=== PATIENT | female | born 1965 | race Caucasian/White ===

== ENCOUNTER 2020-03-27 16:24 | Emergency (ER) | payer OTHER, SELFPAY ==
[2020-03-27] VITALS (7 sets, daily range): BP systolic 131–164; BP diastolic 66–116; PULSE 70–81; RESP 12–18; TEMP 36.6–37.2; O2SAT 97–99
--- NOTE | ~2020-03-27 | XR_ITS ---
EXAMINATION: XR chest 2V DATE: 03/27/2020 17:00 INDICATION: Right-sided chest pain TECHNIQUE: PA and lateral views of the chest are obtained. COMPARISON: 05/08/2015 FINDINGS: A 7 mm nodular opacity projects in the left lung base. No additional focal airspace opaciti es are identified. There is no pleural effusion or pneumothorax. The cardiomediastinal silhouette is normal. The visualized bones and soft tissues are unremarkable. IMPRESSION: 1. Nodular opacity of the left lung base, likely infectious or inflammatory. Recommend followup radio graphs in 10-14 days after appropriate therapy to evaluate for improvement/resolution. Reviewed, dictated and finalized at location A. IMPRESSION: 1. Nodular opacity of the left lung base, likely infectious or inflammatory. Re commend followup radiographs in 10-14 days after appropriate therapy to evaluat e for improvement/resolution.
--- NOTE | 2020-03-27 16:23 | ECG_ITS ---
Measurements Intervals [place] Rate: 73 P: 60 NM: 145 QRS: 59 QRSD: 87 T: 71 QT: 388 QTc: 429 Interpretive Statements SINUS RHYTHM EARLY PRECORDIAL R/S TRANSITION NONSPECIFIC ST & T-WAVE ABNORMALITY- DIFFUSE LEADS BASELINE ARTIFACT- I, II, III, AVL, AVF, V3-V4 BORDERLINE ECG Electronically Signed On 03-28-2020 7:56:42 CDT by Vlad Brothers D.O.
--- NOTE | 2020-03-27 16:33 | ED.CHESTPAIN ---
HPI - Chest Pain General Chief Complaint: Chest Pain Stated Complaint: chest pain Time Seen by Provider: 03/27/20 16:31 Source: patient Mode of arrival: ambulatory Limitations: no limitations History of Present Illness HPI narrative: Patient is a 54-year-old female who presents for evaluation of chest pain. Patient reports that the pain began approximately 2 hours ago when she was blow drying her hair. She states she has a history of fibromyalgia, when she raises her arms above her head it does often elicit arm and chest pain. Pain is in the center of her chest, worsened with movement. No associated nausea, vomiting, diaphoresis, shoulder pain. She does report mild back pain. No abdominal pain. No history of anginal type pain. No history of heart attack. No recent stress test. No recent car or air travel. Patient reports mild bilateral leg edema, but none currently. She reports chronic myalgias and muscle aches due to her fibromyalgia. No recent falls or injury. Related Data Home Medications Medication Instructions Recorded Confirmed fluoxetine 40 mg PO DAILY 03/27/20 meloxicam 15 mg PO DAILY 03/27/20 sertraline 25 mg PO DAILY 03/27/20 Allergies Allergy/AdvReac Type Severity Reaction Status Date / Time [id number]-M-tryptophan Allergy Unknown nausea, Verified 03/27/20 16:31 (oxitriptan) blurred vision gabapentin Allergy Unknown Other Verified 03/27/20 16:31 Penicillins Allergy Unknown Skin Verified 03/27/20 16:31 Reaction sumatriptan Allergy Unknown throat Verified 03/27/20 16:31 tight, lightheaded Review of Systems Review of Systems: Narrative: CONSTITUTIONAL: Denies fever CARDIOVASCULAR: Reports chest pain RESPIRATORY: Denies cough or dyspnea. GASTROINTESTINAL: Denies abdominal pain SKIN: Denies rash MUSCULOSKELETAL: Denies back pain NEUROLOGIC: Denies headache [facility] Past Medical History Medical History (Updated 03/28/20 @ 07:03 by Ayleen Be MD) Endometriosis Fibromyalgia Herpes zoster Surgical History Surgical History (Updated 03/27/20 @ 16:57 by Ayleen Be MD) H/O section H/O tubal ligation H/O: hysterectomy Social History Social History Smoking status: Current every day smoker Alcohol intake: current Exam Narrative: Exam Narrative: GENERAL: Awake, alert, conversant HEAD: Normocephalic, atraumatic. EYES: PERRLA and EOMI. ENT: Nares clear, no rhinorrhea or epistaxis. Mucous membranes moist. NECK: Supple. CHEST: No respiratory distress, breathing even and non labored, central chest wall tenderness which reproduces pain HEART: Regular rate, sinus rhythm ABDOMEN:Non distended, non tender EXTREMITIES: Normal range of motion. No edema. No calf tenderness SKIN: Warm, dry, no rash. NEURO:No focal deficits. Alert and oriented x3 Course Vital Signs Vital signs: Vital Signs Temperature 37.2 C 03/27/20 16:23 Pulse Rate 78 03/27/20 16:23 Respiratory Rate 18 03/27/20 16:23 Blood Pressure 148/116 H 03/27/20 16:23 Pulse Oximetry 99 03/27/20 16:23 Temperature 36.6 C 03/27/20 20:04 Pulse Rate 78 03/27/20 20:04 Respiratory Rate 16 03/27/20 20:04 Blood Pressure 131/74 03/27/20 20:04 Pulse Oximetry 98 03/27/20 20:04 MDM - Chest Pain MDM Narrative Medical decision making narrative: Patient's EKG and labs are without significant high risk changes. Cardiac risk factors reviewed. Patient is felt low risk for ACS and reasonable for further risk stratification testing as an outpatient. Pain was not sudden or maximal or onset without tearing or ripping quality. No other signs or symptoms to suggest aortic dissection. A low risk well's criteria is noted, dimer not elevated, PE is felt to be unlikely. Patient has a nodular opacity, no clinical symptoms of pneumonia or COVID infection, will treat with azithromycin, patient was updated as to the results
[2020-03-27 16:36] LABS: Basophils Percent Auto 0.5 % (0.2-1.2); Eosinophils Absolute Auto 0.1 K/mm3 (0-0.3); Eosinophils Percent Auto 1.6 % (0-4.4); Hematocrit 37.1 % (37.0-47.0); Hemoglobin 12.6 g/dL (12.0-15.0); Immature Granulocyte Absolute 0.02 K/mm3 (0.00-0.031); Immature Granulocyte Percent A 0.3 % (0-0.5); Lymphocytes Absolute Auto 2.11 K/mm3 (0.9-3.2); Lymphocytes Percent Auto 27.5 % (18.3-44.2); Mean Corpuscular Hemoglobin 31.2 pg (26-34); Mean Corpuscular Volume 91.8 fl (80-100); Monocytes Absolute Auto 0.6 K/mm3 (0.1-0.6); Monocytes Percent Auto 8.2 % (2.6-8.5); Neutrophils Absolute Auto 4.8 K/mm3 (1.3-6.7); Neutrophils Percent Auto 61.9 % (45.5-73.1); Platelet Count Result 204 k/mm3 (150-375); Red Blood Count 4.04 M/mm3 (4.2-5.4); Red Cell Distribution Width 12.1 % (11.5-14.5); White Blood Count 7.7 K/mm3 (4.5-10.0)
[2020-03-27 16:48] LABS: Blood Urea Nitrogen 21 mg/dL (7-17); Calcium 9.3 mg/dL (8.4-10.2); Carbon Dioxide 26 mmol/L (22-30); Chloride 107 mmol/L (98-107); Estimated CRCL calculation 93 ml/min; Estimated Glomerular Filt Rate > 60; Glucose 124 mg/dL (65-105); Potassium 3.6 mmol/L (3.4-5.0); Sodium 139 mmol/L (137-145)
[2020-03-27 16:49] LABS: Partial Thromboplastin Time 25.8 SECONDS (22.3-36.8); Prothrombin Time 12.6 Seconds (11.1-14.7)
[2020-03-27 16:59] LABS: Troponin I < 0.012 ng/mL (0.000-0.034)
[2020-03-27 17:16] LABS: D Dimer 0.41 ug/mL (<0.48)
[2020-03-27 19:57] LABS: Troponin I < 0.012 ng/mL (0.000-0.034)
== END 2020-03-27 20:04 | disposition home or self-care (01) ==
PROVIDERS: Emergency Provider Emergency Medicine
DX: J18.9 Pneumonia, unspecified organism (principal); R07.89 Other chest pain; N80.9 Endometriosis, unspecified; M79.7 Fibromyalgia; F17.200 Nicotine dependence, unspecified, uncomplicated; R94.31 Abnormal electrocardiogram [ECG] [EKG]
CPT/HCPCS: 36415; 71046; 80048; 84484; 85025; 85380; 85610; 85730; 93005; 99284; A9270

== ENCOUNTER 2022-06-12 09:06 | Outpatient (CLI) | payer OTHER, SELFPAY ==
[2022-06-12 19:04] LABS: Hemoglobin 12.9 g/dL (12.0-15.0); Mean Corpuscular HGB Conc 32.3 g/dl (32-36); Mean Corpuscular Hemoglobin 30.9 pg (26-34); Mean Corpuscular Volume 95.9 fl (80-100); Mean Platelet Volume 12.2 fl (7.4-10.4); Platelet Count Result 228 k/mm3 (150-375); Red Blood Count 4.17 M/mm3 (4.2-5.4); Red Cell Distribution Width 12.4 % (11.5-14.5); White Blood Count 6.8 K/mm3 (4.5-10.0)
[2022-06-12 19:17] LABS: Alanine Aminotransferase 22 U/L (6-35); Albumin Level 4.1 g/dL (3.5-5.1); Alkaline Phosphatase 86 U/L (38-126); Anion Gap 8 mmol/L (8-16); Aspartate Amino Transferase 28 U/L (14-36); Bilirubin,Total 0.4 mg/dL (0.2-1.3); Blood Urea Nitrogen 19 mg/dL (7-17); Carbon Dioxide 28 mmol/L (22-30); Chloride 102 mmol/L (98-107); Cholesterol 248 mg/dL (0-200); Estimated Glomerular Filt Rate > 60; Glucose 109 mg/dL (65-110); HDL Direct 49 mg/dL; Potassium 4.4 mmol/L (3.4-5.0); Sodium 138 mmol/L (137-145); Triglycerides 200 mg/dL (<150)
[2022-06-12 19:31] LABS: LDL Cholesterol Direct 142 mg/dL
[2022-06-12 19:39] LABS: Hemoglobin A1C 5.7 % (<5.7)
[2022-06-12 19:42] LABS: Vitamin D 25 Hydroxy 28.7 ng/mL
== END 2022-06-12 09:07 | disposition home or self-care (01) ==
LOC: ANHGOSHLAB 09:09
PROVIDERS: PCP Family Medicine; Visit Provider Nurse Practitioner
DX: E78.00 Pure hypercholesterolemia, unspecified (principal); F33.9 Major depressive disorder, recurrent, unspecified; Z13.21 Encounter for screening for nutritional disorder; Z13.6 Encounter for screening for cardiovascular disorders; R73.03 Prediabetes
CPT/HCPCS: 36415; 80053; 80061; 82306; 83036; 84443; 85027

== ENCOUNTER → 2022-08-14 14:54 | Outpatient (CLI) | payer OTHER, SELFPAY ==
--- NOTE | ~2022-08-14 | MR_ITS ---
EXAMINATION: MR elbow LT wo con DATE: 08/14/2022 15:57 INDICATION: Chronic ulnar-sided left elbow pain TECHNIQUE: Magnetic resonance imaging (MRI) of the left elbow was performed without intravenous contr ast. Sequences included coronal, axial, and sagittal PD-weighted FS FSE and coronal, axial, and sagit dulce PD-weighted FSE. COMPARISON: None FINDINGS: Osseous/other: Normal alignment. Normal marrow signal with no marrow edema, fracture, osteochondral lesion or abnor mal marrow replacing process. Tendons: Triceps, biceps brachii and brachialis tendons are normal. Minimal tendinopathy without tear at the medial epicondylar origin of the flexor tendon wad. Mild tendinopathy without tear at the lateral epi condylar origin of the common extensor tendon wad. Ligaments: The medial and lateral collateral ligament complexes are normal. Cubital tunnel: Cubital tunnel is unremarkable with normal signal and caliber of the ulnar nerve. Fluid: Physiologic amount of fluid the elbow joint. Minimal nonspecific edema overlying the medial epicondyl e. IMPRESSION: 1. Mild tendinopathy without tear at the lateral epicondylar origin of the common flexor tendon wad. 2. Minimal tendinopathy without tear at the medial epicondylar origin of the common extensor tendon w ad. Reviewed, dictated and finalized at location B. E IMPRESSION: 1. Mild tendinopathy without tear at the lateral epicondylar origin of the comm on flexor tendon wad. 2. Minimal tendinopathy without tear at the medial epicondylar origin of the co mmon extensor tendon wad.
--- NOTE | ~2022-08-14 | MR_ITS ---
EXAMINATION: MR cervical spine wo con DATE: 08/14/2022 16:06 INDICATION: Neck pain. TECHNIQUE: Magnetic resonance imaging (MRI) of the cervical spine was performed without intravenous c ontrast. Sequences included sagittal T2-weighted FSE, sagittal T2-weighted FS FSE, sagittal T1-weight ed FSE, axial MERGE, and axial T2-weighted FSE. COMPARISON: Cervical spine MRI 06/10/2019 FINDINGS: There is kyphosis of cervical spine. There is 2 mm retrolisthesis of C5 on C6 and C6 on C7. Vertebral body heights are normal. There is mildly decreased disc height at C3-C4, moderately decrea sed disc height at C4-C5, and severely decreased disc height at C5-C6 and C6-C7. The spinal cord sign al intensity is normal. The following disc levels are specifically discussed: C2-C3: There is a central extrusion. There is moderate bilateral uncovertebral joint osteoarthritis. There is severe right and moderate left facet joint osteoarthritis. There is mild bilateral neural fo raminal stenosis. There is no central canal stenosis. C3-C4: The disc is bulging. There is severe bilateral uncovertebral joint osteoarthritis. There is se [place] bilateral facet joint osteoarthritis. There is moderate bilateral neural foraminal stenosis. The re is mild central canal stenosis. C4-C5: The disc is bulging. There is severe bilateral uncovertebral joint osteoarthritis. There is se [place] right and moderate left facet joint osteoarthritis. There is moderate right and mild left neural foraminal stenosis. There is mild central canal stenosis. C5-C6: The disc is bulging. There is severe bilateral uncovertebral joint osteoarthritis. There is mo derate bilateral facet joint osteoarthritis. There is moderate bilateral neural foraminal stenosis. T here is mild central canal stenosis. C6-C7: The disc is bulging. There is severe bilateral uncovertebral joint osteoarthritis. There is mo derate bilateral facet joint osteoarthritis. There is mild bilateral neural foraminal stenosis. There is mild central canal stenosis. C7-T1: The disc does not extend beyond the endplate margin. There is no uncovertebral joint osteoarth ritis. There is severe bilateral facet joint osteoarthritis. There is mild bilateral neural foraminal stenosis. There is no central canal stenosis. IMPRESSION: 1. Severe cervical spondylosis, stable from 06/10/2019. Reviewed, dictated and finalized at location A. NTIFIC SOFTWARE DEVELOPER
== END ==
PROVIDERS: PCP Family Medicine; Visit Provider Nurse Practitioner
DX: M47.892 Other spondylosis, cervical region (principal); S56.212A Strain of other flexor muscle, fascia and tendon at forearm level, left arm, initial encounter; X58.XXXA Exposure to other specified factors, initial encounter
CPT/HCPCS: 72141; 73221

== ENCOUNTER 2022-10-09 09:00 | Outpatient (NON) | payer OTHER, SELFPAY | END 2022-10-09 09:01 | disposition home or self-care (01) | LOC: ANHLAB 10-10 08:01 | PROVIDERS: PCP Family Medicine; Visit Provider Internal Medicine Gastroenterology | DX: K63.5 Polyp of colon (principal) | CPT/HCPCS: 88305 ==

== ENCOUNTER 2022-10-09 09:02 | Day surgery (SDC) | payer OTHER, SELFPAY ==
[2022-08-30 11:01] VITALS: BMI 32.3
[2022-09-29 10:27] VITALS: BMI 29.7
--- NOTE | 2022-10-06 08:39 | WPDANESEPPF ---
Anes - Initial Pre Proc Eval Procedure: Operation Date: 10/09/22 11:00 Proposed Procedures p Screening Colonoscopy - Shiraz Fernandez MD Date/Time: 10/06/22 08:39 Surgeon: Shiraz Fernandez MD Pre Op Diagnosis: History of Polyps Patient Data Age: 57 Gender: F Height: 1.7 m Weight: 86 kg Allergies Allergy/AdvReac Type Severity Reaction Status Date / Time latex Allergy Intermediate Hives Verified 09/29/22 10:26 2-niubjqw-U-tryptophan Allergy Unknown nausea, Verified 09/29/22 10:26 (oxitriptan) blurred vision gabapentin Allergy Unknown Other Verified 09/29/22 10:26 Penicillins Allergy Unknown Skin Verified 09/29/22 10:26 Reaction sumatriptan Allergy Unknown throat Verified 09/29/22 10:26 tight, lightheaded Home Medications Medication Instructions Recorded Confirmed Type duloxetine 60 mg capsule,delayed 60 mg PO DAILY 11/08/20 09/29/22 History release atorvastatin 10 mg tablet 10 mg PO QHS #90 tabs 06/14/22 09/29/22 Rx cholecalciferol (vitamin D3) 50 50 mcg PO DAILY #90 tabs 06/14/22 09/29/22 Rx mcg (2,000 unit) tablet sertraline 50 mg tablet 50 mg PO DAILY 06/14/22 09/29/22 History sodium,potassium,mag sulfates 17.5 See Rx Instructions PO .COMPLEX 08/30/22 10/09/22 Rx gram-3.13 gram-1.6 gram oral soln #354 mL (Suprep Bowel Prep Kit) furosemide 40 mg tablet 40 mg PO QAM #90 tabs 09/22/22 09/29/22 Rx meloxicam 15 mg tablet 15 mg PO DAILY #90 tabs 09/22/22 09/29/22 Rx Patient hx anesthesia problems: none Family hx anesthesia problems: none Results Review: All pre-operative results and documents have been reviewed as part of the pre-operative evaluation. PENDING SALE TO [facility] Past Medical History Medical History Allergies Anxiety Arthritis Chronic back pain Chronic knee pain Endometriosis Fibromyalgia Herpes zoster Migraine, unspecified, not intractable, without status migrainosus Rodriguez's neuroma of right foot Surgical History Surgical History H/O section H/O tubal ligation H/O: hysterectomy Family History Family History Father Diabetes mellitus Family history of glaucoma Family history of cardiovascular disease Cerebrovascular accident Malignant neoplasm of prostate Mother Family history of cardiovascular disease Other Alcoholism Depression Heart disease Thyroid disorder Social History Social History Smoking packs per day: 0.5 Smoking cigarettes per day: 10.0 Smoking status: Smoker, status unknown Tobacco type: cigarettes Second hand tobacco smoke exposure: Yes Alcohol intake: never Alcohol use details: Only twice per year if that. Substance use: current Substance use type: marijuana Other substance usage details: gummies Living arrangements: with family Additional living arrangements comments: Additional occupation/education comments: [employer] Gender identity (if verbalized by the patient): Female Sexual Orientation (if Verbalized by the Patient): Straight or Heterosexual Spiritual care concerns: No Agree to blood products: Yes Anes - Eval Final PreProcedure Day of Procedure 10/06/22 08:39 Patient weight: obese Heart: regular rate and rhythm Lungs: clear to auscultation Airway: Mallampati scale class II Neurological: alert and oriented Last oral intake: >/= 8 hours ASA classification: III Emergent: no Anesthetic plan: proceed Anesthesia type and monitoring: general GIVS and standard monitoring Results Review: All pre-operative results and documents have been reviewed as part of the pre-operative evaluation. Informed Consent: The patient's anesthetic plan and its attendant risks and benefits were discussed with the patient/family/POA. Questions were solicited
[2022-10-09 09:45] VITALS: BP 114/81; PULSE 87; RESP 20; TEMP 36.6; O2SAT 97
[2022-10-09] MEDS: LACTATED RINGERS 1,000 ML 150 ML IV CONT (10:10)
--- NOTE | 2022-10-09 10:30 | PM.HPGS ---
History of Present Illness History of Present Illness Consent: Risks, benefits, and alternatives have been discussed and questions answered. Patient agrees to proceed with procedure. Chief complaint: History of Polyps Narrative: Sierra Dubose is a 57 year old female Presents for screening colonoscopy. Patient has a history of colon polyps identified in 2017. Family history is significant that her mother recently was identified as having colon cancer. Patient's current weight appetite and bowel movements are normal. Patient denies abdominal pain. She has had no bleeding. She presents today for neoplasia screening. Review of Systems Review of Systems: Review of systems noncontributory. [facility] Past Medical History Medical History Allergies Anxiety Arthritis Chronic back pain Chronic knee pain Endometriosis Fibromyalgia Herpes zoster Migraine, unspecified, not intractable, without status migrainosus Rodriguez's neuroma of right foot Surgical History Surgical History H/O section H/O tubal ligation H/O: hysterectomy Family History Family History Father Diabetes mellitus Family history of glaucoma Family history of cardiovascular disease Cerebrovascular accident Malignant neoplasm of prostate Mother Family history of cardiovascular disease Other Alcoholism Depression Heart disease Thyroid disorder Social History Social History Smoking packs per day: 0.5 Smoking cigarettes per day: 10.0 Smoking status: Smoker, status unknown Tobacco type: cigarettes Second hand tobacco smoke exposure: Yes Alcohol intake: never Alcohol use details: Only twice per year if that. Substance use: current Substance use type: marijuana Other substance usage details: jenise Living arrangements: with family Additional living arrangements comments: Additional occupation/education comments: [employer] Gender identity (if verbalized by the patient): Female Sexual Orientation (if Verbalized by the Patient): Straight or Heterosexual Spiritual care concerns: No Agree to blood products: Yes Meds Home Medications and Allergies Home Medications Medication Instructions Recorded Confirmed Type duloxetine 60 mg capsule,delayed 60 mg PO DAILY 11/08/20 09/29/22 History release atorvastatin 10 mg tablet 10 mg PO QHS #90 tabs 06/14/22 09/29/22 Rx cholecalciferol (vitamin D3) 50 50 mcg PO DAILY #90 tabs 06/14/22 09/29/22 Rx mcg (2,000 unit) tablet sertraline 50 mg tablet 50 mg PO DAILY 06/14/22 09/29/22 History sodium,potassium,mag sulfates 17.5 See Rx Instructions PO .COMPLEX 08/30/22 10/09/22 Rx gram-3.13 gram-1.6 gram oral soln #354 mL (Suprep Bowel Prep Kit) furosemide 40 mg tablet 40 mg PO QAM #90 tabs 09/22/22 09/29/22 Rx meloxicam 15 mg tablet 15 mg PO DAILY #90 tabs 09/22/22 09/29/22 Rx Allergies Allergy/AdvReac Type Severity Reaction Status Date / Time latex Allergy Intermediate Hives Verified 09/29/22 10:26 6-[id number]-F-tryptophan Allergy Unknown nausea, Verified 09/29/22 10:26 (oxitriptan) blurred vision gabapentin Allergy Unknown Other Verified 09/29/22 10:26 Penicillins Allergy Unknown Skin Verified 09/29/22 10:26 Reaction sumatriptan Allergy Unknown throat Verified 09/29/22 10:26 tight, lightheaded Vital Signs Vital Signs - 24 hr 10/09/22 09:45 Temperature 98 F Pulse Rate 87 Respiratory Rate 20 Blood Pressure 114/81 Pulse Oximetry 97 Oxygen Delivery Room Air Exam Narrative: Physical exam reveals patient to be alert. Vital signs stable. HEENT exam is unremarkable. Patient is anicteric. Lungs are clear to auscultation and percussion. Heart is without murmur or extra sounds. Abdome
[2022-10-09 10:57] VITALS: BP 119/75; PULSE 78; RESP 18; O2SAT 100
[2022-10-09 11:07] VITALS: BP 109/62; PULSE 75; RESP 18; O2SAT 100
[2022-10-09 11:17] VITALS: BP 139/78; PULSE 78; RESP 18; O2SAT 100
--- NOTE | 2022-10-09 12:19 | WPDANESPN ---
Anes - Prog Note Post-Op Date/Time: 10/09/22 12:19 Cardiovascular status: normal Respiratory status: normal Airway patency: baseline Mental status: baseline Post-Op hydration status: normal Vital Signs: Last Vital Signs Temp 36.6 C 10/09/22 09:45 Pulse 78 10/09/22 11:17 Resp 18 10/09/22 11:17 BP 139/78 10/09/22 11:17 Pulse Ox 100 10/09/22 11:17 O2 Del Method Room Air 10/09/22 11:17 Pain Score (VAS): 0 I/O: Intake & Output 10/08/22 10/09/22 10/09/22 23:59 07:59 15:59 Intake Total 500 Balance 500 Post-procedural complaints: none Patient Feedback: Patient satisfied with anesthetic care. Other Findings: Patient vital signs back to baseline. Patient denies nausea and vomiting. Patient's pain under control. Patient OK for discharge.
== END 2022-10-09 11:38 | disposition home or self-care (01) ==
PROVIDERS: PCP Family Medicine; Visit Provider Internal Medicine Gastroenterology
PROC: 0DJD8ZZ Inspection of Lower Intestinal Tract, Via Natural or Artificial Opening Endoscopic (ICD-10-PCS; CPT 45378; principal; 2022-10-09 11:00)
DX: Z86.010 Personal history of colon polyps (principal)
CPT/HCPCS: 45380

== ENCOUNTER 2022-12-13 10:33 | Outpatient (CLI) | payer OTHER, SELFPAY ==
[2022-12-13 20:28] LABS: Alanine Aminotransferase 24 U/L (6-35); Albumin Level 4.6 g/dL (3.5-5.1); Alkaline Phosphatase 91 U/L (38-126); Anion Gap 2 mmol/L (8-16); Aspartate Amino Transferase 54 U/L (14-36); Bilirubin,Total 0.5 mg/dL (0.2-1.3); Blood Urea Nitrogen 20 mg/dL (7-17); Calcium 9.1 mg/dL (8.4-10.2); Carbon Dioxide 32 mmol/L (22-30); Chloride 102 mmol/L (98-107); Cholesterol 217 mg/dL (0-200); Estimated Glomerular Filt Rate > 60; Glucose 93 mg/dL (65-110); HDL Direct 52 mg/dL; Potassium 4.3 mmol/L (3.4-5.0); Sodium 136 mmol/L (137-145); Triglycerides 144 mg/dL (<150)
[2022-12-13 20:29] LABS: Vitamin D 25 Hydroxy 58.6 ng/mL
[2022-12-13 20:52] LABS: LDL Cholesterol Direct 110 mg/dL
== END 2022-12-13 10:34 | disposition home or self-care (01) ==
LOC: ANHGOSHLAB 10:34
PROVIDERS: PCP Family Medicine; Visit Provider Nurse Practitioner
DX: E78.00 Pure hypercholesterolemia, unspecified (principal); E55.9 Vitamin D deficiency, unspecified
CPT/HCPCS: 36415; 80053; 80061; 82306

== ENCOUNTER 2023-06-18 10:10 | Outpatient (CLI) | payer BC, SELFPAY ==
[2023-06-18 19:16] LABS: Hematocrit 40.4 % (37.0-47.0); Hemoglobin 12.7 g/dL (12.0-15.0); Mean Corpuscular HGB Conc 31.4 g/dl (32-36); Mean Corpuscular Hemoglobin 31.7 pg (26-34); Mean Corpuscular Volume 100.7 fl (80-100); Mean Platelet Volume 13.2 fl (7.4-10.4); Platelet Count Result 198 k/mm3 (150-375); Red Blood Count 4.01 M/mm3 (4.2-5.4); Red Cell Distribution Width 12.7 % (11.5-14.5); White Blood Count 6.8 K/mm3 (4.5-10.0)
[2023-06-18 20:18] LABS: Alanine Aminotransferase 22 U/L (6-35); Albumin Level 4.3 g/dL (3.5-5.1); Alkaline Phosphatase 85 U/L (38-126); Anion Gap 7 mmol/L (8-16); Aspartate Amino Transferase 47 U/L (14-36); Bilirubin,Total 0.5 mg/dL (0.2-1.3); Blood Urea Nitrogen 25 mg/dL (7-17); Calcium 9.2 mg/dL (8.4-10.2); Carbon Dioxide 29 mmol/L (22-30); Chloride 103 mmol/L (98-107); Cholesterol 186 mg/dL (0-200); Estimated Glomerular Filt Rate > 60; Glucose 99 mg/dL (65-110); HDL Direct 48 mg/dL; Potassium 3.7 mmol/L (3.4-5.0); Sodium 139 mmol/L (137-145); Triglycerides 152 mg/dL (<150)
[2023-06-18 20:30] LABS: LDL Cholesterol Direct 92 mg/dL
[2023-06-18 21:30] LABS: Hemoglobin A1C 5.6 % (<5.7)
[2023-06-22 11:59] LABS: Vitamin D 1,25 (OH)2 Total 42 pg/mL (18-72); Vitamin D2 1,25 (OH)2 <8 pg/mL; Vitamin D3 1,25 (OH)2 42 pg/mL
== END 2023-06-18 10:11 | disposition home or self-care (01) ==
LOC: ANHGOSHLAB 10:11
PROVIDERS: PCP Family Medicine; Visit Provider Family Medicine
DX: E55.9 Vitamin D deficiency, unspecified (principal); E78.00 Pure hypercholesterolemia, unspecified; R73.03 Prediabetes; E66.9 Obesity, unspecified; Z79.899 Other long term (current) drug therapy
CPT/HCPCS: 36415; 80053; 80061; 82652; 83036; 84443; 85027

== ENCOUNTER 2023-12-14 09:23 | Outpatient (CLI) | payer BC, SELFPAY ==
[2023-12-14 14:35] LABS: Alanine Aminotransferase 15 U/L (6-35); Albumin Level 3.9 g/dL (3.5-5.1); Alkaline Phosphatase 76 U/L (38-126); Anion Gap 2 mmol/L (8-16); Aspartate Amino Transferase 44 U/L (14-36); Bilirubin,Total 0.5 mg/dL (0.2-1.3); Blood Urea Nitrogen 18 mg/dL (7-17); Calcium 9.1 mg/dL (8.4-10.2); Carbon Dioxide 31 mmol/L (22-30); Chloride 107 mmol/L (98-107); Cholesterol 165 mg/dL (0-200); Estimated Glomerular Filt Rate > 60; Glucose 104 mg/dL (65-110); HDL Direct 49 mg/dL; Potassium 4.4 mmol/L (3.4-5.0); Sodium 140 mmol/L (137-145); Triglycerides 116 mg/dL (<150)
[2023-12-14 14:46] LABS: LDL Cholesterol Direct 91 mg/dL
[2023-12-14 15:05] LABS: Hematocrit 37.5 % (37.0-47.0); Immature Platelet Fraction Pct 17.3 % (0.9-11.2); Mean Corpuscular Hemoglobin 31.8 pg (26-34); Mean Corpuscular Volume 99.5 fl (80-100); Mean Platelet Volume 13.2 fl (7.4-10.4); Platelet Count Result 167 k/mm3 (150-375); Red Blood Count 3.77 M/mm3 (4.2-5.4); Red Cell Distribution Width 13.2 % (11.5-14.5); White Blood Count 4.3 K/mm3 (4.5-10.0)
[2023-12-14 15:44] LABS: Folic Acid > 20.0 ng/mL (2.76->20)
[2023-12-14 16:00] LABS: Iron 105 ug/dL (37-170)
[2023-12-14 17:36] LABS: Percent Iron Saturation 31 % (20-50)
[2023-12-14 17:58] LABS: Hemoglobin A1C 5.6 % (<5.7)
[2023-12-18 13:45] LABS: Vitamin D 1,25 (OH)2 Total 41 pg/mL (18-72); Vitamin D2 1,25 (OH)2 <8 pg/mL; Vitamin D3 1,25 (OH)2 41 pg/mL
== END 2023-12-14 09:24 | disposition home or self-care (01) ==
LOC: ANHGOSHLAB 09:25
PROVIDERS: PCP Family Medicine; Visit Provider Family Medicine
DX: D64.9 Anemia, unspecified (principal); E55.9 Vitamin D deficiency, unspecified; E66.9 Obesity, unspecified; E78.00 Pure hypercholesterolemia, unspecified; R73.03 Prediabetes; Z79.899 Other long term (current) drug therapy
CPT/HCPCS: 36415; 80053; 80061; 82607; 82652; 82728; 82746; 83036; 83540; 83550; 84443; 85027; 85055

== ENCOUNTER 2023-12-19 09:14 | Outpatient (CLI) | payer BC, SELFPAY ==
--- NOTE | ~2023-12-19 | US_ITS ---
Limited Abdominal Sonogram: Real-time sonographic imaging of the right upper quadrant was performed. Clinical History: Abnormal serum enzymes Findings: The liver appears normal with no evidence of mass lesion or bile duct dilatation. Main por dulce vein demonstrates normal direction of flow. The gallbladder is well distended, and demonstrates s everal small polyps, measuring up to 3mm. The common bile duct measures 4 mm. The visualized pancrea s, aorta, and IVC are unremarkable. Impression: Small gallbladder wall polyps, as above. Reviewed, dictated and finalized at location M. Impression: Small gallbladder wall polyps, as above.
== END 2023-12-19 09:15 ==
LOC: GOSHIMG 09:14
PROVIDERS: PCP Family Medicine; Visit Provider Family Medicine
DX: R74.8 Abnormal levels of other serum enzymes (principal)
CPT/HCPCS: 76705

== ENCOUNTER 2024-01-25 10:13 | Outpatient (CLI) | payer BC, SELFPAY ==
--- NOTE | ~2024-01-25 | MR_ITS ---
MRI of the cervical spine Clinical History: Radiculopathy Technique: Axial T2-weighted and gradient images, and sagittal T1-weighted, T2-weighted, and STIR paz ges were acquired. Comparison: 08/14/2022 Findings: There is no fracture or subluxation of the cervical spine. Osseous alignment is unchanged from prior exam. No suspicious bone marrow signal abnormality seen. At C2-C3, there is mild disc osteophyte complex with right-sided facet arthropathy. There is mild rig ht neural foraminal narrowing. No left neural foraminal narrowing. No central canal stenosis or cord compression. At C3-C4, there is disc osteophyte complex, mild, with left facet arthropathy in particular. There is mild bilateral neural foraminal narrowing. No sean canal stenosis or cord compression. At C4-C5, there is disc ossify complex and bilateral facet arthropathy. There is bilateral neural for aminal narrowing, right worse than left. There is mild canal stenosis without sean cord compression. At C5-C6, there is moderate degenerative disc narrowing with mild disc osteophyte complex. There is m ild facet arthropathy. There is bilateral neural foraminal narrowing. No sean spinal canal stenosis or cord compression. At C6-C7, there is moderate degenerative disc narrowing with small disc osteophyte complex. There is mild canal stenosis without sean cord compression. There is bilateral neural foraminal narrowing, ri ght worse than left. No abnormal signal seen in the spinal cord. Paravertebral soft tissues are unremarkable. IMPRESSION: Moderate degenerative spondylosis, as detailed above. Reviewed, dictated and finalized at location .
== END 2024-01-25 10:14 ==
LOC: GOSHIMG 10:14
PROVIDERS: PCP Family Medicine; Visit Provider Nurse Practitioner Family
DX: M47.22 Other spondylosis with radiculopathy, cervical region (principal)
CPT/HCPCS: 72141

== ENCOUNTER 2024-05-05 15:12 | Outpatient (CLI) | payer BC, SELFPAY ==
--- NOTE | ~2024-05-05 | MM_ITS ---
EXAMINATION: MM screening martin BI w velvet HISTORY: Screening TECHNIQUE: Craniocaudal and mediolateral oblique 3-D tomosynthesis images were obtained and synthetic 2-D images were generated. CAD analysis was submitted and interpreted. COMPARISON: Comparison to multiple prior studies sequentially, with oldest reviewed study dated 05/11. BREAST PARENCHYMAL COMPOSITION: Not dense: There are scattered areas of fibroglandular density. FINDINGS: There is no evidence of suspicious mass, calcification, or architectural distortion to sugg est malignancy in either breast. There has been no suspicious interval change. IMPRESSION: 1. No mammographic evidence of malignancy. 2. Recommend routine screening mammography in one year. BI-RADS Category 1: Negative Reviewed, dictated and finalized at location B.
== END 2024-05-05 15:13 | disposition home or self-care (01) ==
PROVIDERS: PCP Family Medicine; Visit Provider Family Medicine
DX: Z12.31 Encounter for screening mammogram for malignant neoplasm of breast (principal)
CPT/HCPCS: 77063; 77067

== ENCOUNTER 2024-05-07 08:54 | Outpatient (CLI) | payer BC, SELFPAY ==
--- NOTE | ~2024-05-07 | XR_ITS ---
Cervical Spine: AP, lateral, open-mouth views Clinical History: Pain Findings: There is mild reversal normal cervical lordosis. No fracture or sublocation. There is moder ate to advanced degenerative disc narrowing from C3 through C7. There is moderate facet arthropathy. No instability evident on flexion or extension. Pre-vertebral soft tissues are unremarkable. Impression: Moderate degenerative spondylosis, as above. Reviewed, dictated and finalized at location . Impression: Moderate degenerative spondylosis, as above.
--- NOTE | ~2024-05-07 | CT_ITS ---
EXAMINATION: CT cervical spine wo con DATE: 05/07/2024 09:13 INDICATION: Radiculopathy, cervical region. Neck pain. TECHNIQUE: Computed tomography (CT) of the cervical spine was performed without intravenous contrast. Automated exposure control and iterative reconstruction technique were employed. The dose-length pro duct was 236.72 mGy-cm. COMPARISON: Cervical spine radiographs 05/07/24 FINDINGS: There is mild scarring at the lung apices. There is mild emphysema. There is kyphosis of ce rvical spine. There is 2 mm retrolisthesis of C5 on C6 and C6 on C7. Vertebral body heights are deisy l. There is mildly decreased disc height at C3-C4 and severely decreased disc height from C4-C5 throu gh C6-C7. The following disc levels are specifically discussed: C2-C3: There is severe right and mild left uncovertebral joint osteoarthritis. There is severe right and mild left facet joint osteoarthritis. There is mild right neural foraminal stenosis. There is no central canal stenosis. C3-C4: There is severe right and moderate left uncovertebral joint osteoarthritis. There is severe bi lateral facet joint osteoarthritis. There is mild right and moderate left neural foraminal stenosis. There is mild central canal stenosis. C4-C5: There is severe bilateral uncovertebral joint osteoarthritis. There is severe bilateral facet joint osteoarthritis. There is mild bilateral neural foraminal stenosis. There is mild central canal stenosis. C5-C6: There is severe bilateral uncovertebral joint osteoarthritis. There is severe bilateral facet joint osteoarthritis. There is mild bilateral neural foraminal stenosis. There is mild central canal stenosis. C6-C7: There is severe bilateral uncovertebral joint osteoarthritis. There is severe right and modera te left facet joint osteoarthritis. There is mild right and moderate left neural foraminal stenosis. There is mild central canal stenosis. C7-T1: There is mild right uncovertebral joint osteoarthritis. There is severe bilateral facet joint osteoarthritis. There is mild bilateral neural foraminal stenosis. There is no central canal stenosis . IMPRESSION: 1. Severe cervical spondylosis. Reviewed, dictated and finalized at location A.
== END 2024-05-07 08:55 ==
PROVIDERS: PCP Family Medicine; Visit Provider Neurological Surgery
DX: M47.892 Other spondylosis, cervical region (principal); M25.562 Pain in left knee
CPT/HCPCS: 72050; 72125; 73562

== ENCOUNTER 2024-09-10 15:16 | Outpatient (CLI) | payer BC, SELFPAY ==
--- NOTE | ~2024-09-10 | XR_ITS ---
EXAMINATION: XR lumbar spine 2-3V DATE: 09/10/2024 16:20 INDICATION: Other low back pain. TECHNIQUE: 3 views of lumbar spine were obtained. COMPARISON: None. FINDINGS: There is 4 degrees levocurvature of lumbar spine. There is mild kyphosis of lumbar spine. V ertebral body heights are normal. There is mildly decreased disc height at L2-L3 and L3-L4. There is multilevel facet joint osteoarthritis, severe in lower lumbar spine. IMPRESSION: 1. Mild lumbar spondylosis. Reviewed, dictated and finalized at location A. [employer]URED CABLING TECHNICIAN IMPRESSION: 1. Mild lumbar spondylosis.
== END 2024-09-10 15:17 | disposition home or self-care (01) ==
PROVIDERS: PCP Family Medicine; Visit Provider Nurse Practitioner Family
DX: M47.896 Other spondylosis, lumbar region (principal)
CPT/HCPCS: 72100

== ENCOUNTER 2025-01-15 10:26 | Outpatient (CLI) | payer BC, SELFPAY ==
--- NOTE | ~2025-01-15 | XR_ITS ---
XR hand BI arthritis min 3V Ordering provider: Triston Puente MD History: . rheumatoid arthritis . Comparison: None. FINDINGS: RIGHT HAND: --BONES: No acute fracture or dislocation. No osteopenia. --JOINT SPACES: Well maintained. No erosion, osteophytosis or sclerosis. --SOFT TISSUES: Unremarkable. No soft tissue swelling or nodules. LEFT HAND: --BONES: No acute fracture or dislocation. --JOINT SPACES: Well maintained. No erosion, osteophytosis or sclerosis. --SOFT TISSUES: Unremarkable. No soft tissue swelling or nodules. IMPRESSION: 1. No acute osseous abnormality bilateral hands. 2. No arthritis. Reviewed, dictated and finalized at location A.
--- NOTE | ~2025-01-15 | XR_ITS ---
Left foot Technique: AP and lateral views were obtained. Clinical History: Rheumatoid arthritis Findings: No acute fracture or dislocation is seen. Osseous alignment is anatomic. Joint spaces are p reserved without erosive or degenerative change. Soft tissues are unremarkable. Impression: Unremarkable left foot radiographs. Reviewed, dictated and finalized at location . Impression: Unremarkable left foot radiographs.
--- OUTSIDE RECORDS SUMMARY | 2025-01-15 11:17 | XMS_ITS | Clinical Summary ---
Author Organization [facility] Address [facility] [address] Care Team Providers Care Silica Mixer Operator Name Role Phone Parvin Amos DO Primary Care Provider [phone] Source Comments [facility],non-owned Affiliates and Associated Physician Practices is amultiple site organization consisting of ambulatory clinics and hospital sitesin [place], [place] and [place]. This disclosure is being madepursuant to the Care Everywhere program and may not contain all information available regarding this patient. Last updated 18.[facility] [employer] Social History Tobacco Use Types Packs/Day Years Used Date Smoking Tobacco: Never Assessed Comments Unknown Sex and Gender Information Value Date Recorded Sex Assigned at Not on file Legal Sex Female 6:19 AM MARKET RESEARCH WORKER Gender Identity Not on file Sexual Orientation Not on file Plan of Treatment Upcoming Encounters Date Type Department Care Team (Late st Contact Info) Description 05/04/2025 9:00 AM CDT Office Visit [facility] - Rhe[facility]ology [address] [place] [phone] Janna Hooper MD [address] [place] [phone] Health Maintenance Due Date Last Done Comments COLOGUARD (AGES 45-75) - COL ON CA SCREENING 1967 COLON MONITORING 1967 COLONOSCOPY - COLON CA SCREENING 1967 CT COLONOGRAPHY - COLON CA SCREENING 1967 Colorectal Cancer Screening 1967 FIT - COLON CA SCREENING 1967 FLEX SIG - COLON CA SCREENING 1967 LIPID TESTING 1967 MAMMOGRAM 1967 HIV SCREENING 1982 HEPATITIS C SCREENING 05/09/1985 DTAP/TDAP/TD VACCINES (1 - Tdap) 1986 HEPATITIS B VACCINE (1 of 3 - 19+ 3-dose series) 1986 PNEUMOCOCCAL VACCINE 50+ (1 of 1 - PCV) 2017 ZOSTER VACCINE (1 of 2) 2017 COVID-19 VACCINE (1 - 2023-2 5 season) 2024 DEPRESSION SCREENING 10/01/2024 INFLUENZA VACCINE (Season Ended) 2025 HIB VACCINE Aged Out No longer eligi ble based on patient's age to complete this topic HPV VACCINE Aged Out No longer eligi ble based on patient's age to complete this topic MENINGOCOCCAL (Group B) VACC INE SHARED DECISION-MAKING Aged Out No longer eligibl e based on patient's age to complete this topic MENINGOCOCCAL GROUPS A/C/Y/W VACCINE Aged Out No longer eligible b ased on patient's age to complete this topic Insurance [facility] Care Teams Silica Mixer Operator Relationship Specialty Start Date End Date Parvin Amos DO [address] [place] [address] PCP - General Family Medicine 10/21/24
== END 2025-01-15 10:27 | disposition home or self-care (01) ==
PROVIDERS: PCP Family Medicine; Visit Provider Internal Medicine
DX: M06.9 Rheumatoid arthritis, unspecified (principal)
CPT/HCPCS: 73130; 73620

== ENCOUNTER 2025-03-06 09:43 | Outpatient (CLI) | payer BC, SELFPAY ==
--- NOTE | ~2025-03-06 | MR_ITS ---
MRI of the right hand CLINICAL HISTORY: Rheumatoid arthritis TECHNIQUE: Axial T1-weighted, STIR, and T2 fat-sat images, coronal T1-weighted and STIR images, and s agittal T1-weighted and STIR images were performed. FINDINGS: Bone marrow signals are unremarkable. No fracture or bone marrow edema seen. No evidence fo r osteitis. Joint spaces are intact. No degenerative or erosive arthropathy seen. No evidence for adrianne nt effusion or synovitis. Collateral ligaments are intact. Flexor and extensor tendons are intact. No distinct evidence for tenosynovitis. Intrinsic musculature of the hand is unremarkable. No soft tissue mass or fluid collection seen. IMPRESSION: No significant abnormality seen. Reviewed, dictated and finalized at location .
--- NOTE | ~2025-03-06 | MR_ITS ---
MRI of the left hand CLINICAL HISTORY: Rheumatoid arthritis TECHNIQUE: Axial T1-weighted, STIR, and T2 fat-sat images, coronal T1-weighted and STIR images, and s agittal T1-weighted and STIR images were performed. FINDINGS: Bone marrow signals are unremarkable. No fracture or bone marrow edema seen. No evidence fo r osteitis. Joint spaces are intact. No degenerative or erosive arthropathy seen. No evidence for adrianne nt effusion or synovitis. Collateral ligaments are intact. Flexor and extensor tendons are intact. There is mild tenosynovitis of the flexor tendon of the fourt h finger.. Intrinsic musculature of the hand is unremarkable. No soft tissue mass or fluid collection seen. IMPRESSION: Mild tenosynovitis of the flexor tendon of the fourth finger. Reviewed, dictated and finalized at location .
== END 2025-03-06 09:44 | disposition home or self-care (01) ==
PROVIDERS: PCP Family Medicine; Visit Provider Internal Medicine
DX: M65.842 Other synovitis and tenosynovitis, left hand (principal)
CPT/HCPCS: 73218

== ENCOUNTER 2025-06-22 12:47 | Emergency (ER) | payer BC, SELFPAY ==
--- OUTSIDE RECORDS SUMMARY | 2024-11-21 04:38 | XMS_ITS | Continuity of Care Document ---
Author Organization [facility] Address [address] [place] [address] Phone Care Team Providers Care Extraction Supervisor Name Role Phone Rachel Belle NP Unavailable [...] - Active Multi For Her 18 mg [id number] mcg tablet Take one tablet by mouth [...] Diagnoses Date Provider Providers Copied on Encounter [facility], [address] [place] [address], [address], [place] tel: [phone] [facility] No Information 5 Barbra Ramos. [address] [place], [address], [place]. tel: [phone] Moderate level of MDM [facility], [address] [place] [address], [address], [place] tel: [phone] [facility] Dorsalgia, unspecifiedPleurodyni a 3 Link Rosie. [address] [place], [address]. tel: [phone] Low level of MDM [facility], [address] [place] [address], [address], [place] tel: [phone] [facility] Dorsalgia, unspecifiedUnspecifie d abdominal pain 3 Barbra Ramos. [address] [place], [address], [place]. tel: [phone] Moderate level of MDM [facility], [address] [place] [address], [address], [place] tel: [phone] [facility] Dorsalgia, unspecified 3 Barbra Ramos. [address] [place], [address], [place]. tel: [phone] Moderate level of MDM [facility], [address] [place] [address], [address], [place] tel: [phone] [facility] Pleurodynia 3 Link Velez. [address] [place], [address]. tel: [phone] Low level of MDM [facility], [address] [place] [address], [address], [place] tel: [phone] [facility] Acute vaginitisCystocele, midline 2 Irvin Cason. [address] [place] [address], [address], [place]. tel: [phone] Low level of MDM [facility], [address] [place] [address], [address], [place] tel: [phone] [facility] Nasal polyp, unspecifiedAllergic rhinitis, unspecifiedAnosmia 1 Barbra Ramos. [address] [place], [facility], [place]. tel: [phone] [facility], [address] [place] [address], [facility], [place] tel: [phone] [facility] No Information 1 Barbra Ramos. [address] [place], [facility], [place]. tel: [phone] [facility], [address] [place] [address], [facility], [place] tel: [phone] [facility] No Information 1 Barbra Ramos. [address] [place], [facility], [place]. tel: [phone] Comprehensiv e, moderate complexity [facility], [address] [place] [address], [facility], [place] tel: [phone] [facility] Hyperlipidemia, unspecifiedFatty (change of) liver, not elsewhere classifiedOther fatigueMenopausal and female climacteric statesObesity, unspecified 9 Barbra Ramos. [address], [facility], [place]. tel: [phone] Office Visit [facility], [address] [place] [address], [facility], [place] tel: [phone] [facility] Overactive bladderFrequency of micturition 8 Mati Frank. [address] [place] [address], [address]. tel: [phone] Referring Provider: Jessika Reynoso, [address] [place] [address], [id number]. tel:[phone] Office Visit Established [facility], [address] [place] [address], [facility], tel: [phone] [facility] Acute vaginitis 8 Edgardo Rosen. [address] [place] [address], [id number] . tel: [phone] Office Visit [facility], [address] [place] [address], [facility], tel: [phone] [facility] Acute vaginitis Edgardo Mottath. [address] [place] [address], [id number] . tel: [phone] Family History Family Member Type Diagnosis Age At Onset No Information Immunizations Vaccine Date Status Comments COVID-19, mRNA, LNP-S, PF, 100 mcg/0.5 mL dose administered Note: Moderna COVID- 19 Vaccine ; Source: Source Unspecified COVID-19, mRNA, LNP-S, PF, 100 mcg/0.5 mL dose administered Note: Moderna COVID- 19 Vaccine ; Source: Source Unspecified Payers Payer name Insurance type Covered republican ID Jamil harris(s) BC/BS B [id number] Social History Type Description Quantity Date Captured Comments Sex Female Smoking Status No Information Chief Complaint And Reason For Visit No Information History Of Present Illness Encounter Date Complaint History Of Prese nt Illness No Information Instructions Date Instruction Additional Infor mation No Information Assessments Type Assessment Date No Information
--- NOTE | ~2025-06-22 | XR_ITS ---
EXAMINATION: XR lumbar spine 2-3V DATE: 06/22/2025 17:27 INDICATION: Left sciatica TECHNIQUE: 3 of the lumbar spine, and cone-down lateral view of the lumbosacral junction were obtained. COMPARISON: None. FINDINGS: There is bowel gas and stool projecting over the pelvis which limits evaluation. Lumbar vertebral body heights are within normal limits. Reversal of the normal lumbar lordosis. Mild intervertebral disc space narrowing throughout the lumbar spine. Mild degenerative change in the lumbar facet joints. IMPRESSION: 1. No compression fracture in the lumbar spine. 2. Reversal of the normal lumbar lordosis. 3. Mild degenerative change in the lumbar spine. If symptoms persist or worsen, consider an MRI of the lumbar spine for further assessment. Reviewed, dictated and finalized at location Q.
--- NOTE | ~2025-06-22 | XR_ITS ---
Clinical history:Left-sided sciatica EXAM:X-ray sacroiliac joints minimum 3 views TECHNIQUE:3 images were obtained Comparisons: FINDINGS: Mild degenerative change in the sacroiliac joints. There is bowel gas and stool projecting over the pelvis which limits evaluation. There are a few less than 1.0 cm calcifications projecting over the pelvis which may represent phleboliths, however, a distal ureteral stone or bladder stone or possible. No fracture. No dislocation. IMPRESSION: 1. Mild degenerative change in the sacroiliac joints. If symptoms persist or worsen, consider a short-term follow-up study or MRI imaging for further assessment. Reviewed, dictated and finalized at location Q. IMPRESSION: 1. Mild degenerative change in the sacroiliac joints. If symptoms persist or worsen, consider a short-term follow-up study or MRI paz ging for further assessment.
--- OUTSIDE RECORDS SUMMARY | 2025-06-22 13:14 | XMS_ITS | Clinical Summary ---
Author Organization [facility] Address [facility] [place] [address] Care Team Providers Care Leak Inspector Name Role Phone Parvin Amos DO Primary Care Provider [phone]- [phone] Allergies Active Allergy Reactions Criticality Noted Date Comments Penicillins Medications atorvastatin (LIPITOR) 10 mg tablet 10/10/[address] (CYMBALTA) 60 mg capsule 09/22/2022 Active furosemide (LASIX) 40 mg tablet 09/17/2022 Active meloxicam (MOBIC) 15 mg tablet 09/17/2022 Active QUEtiapine (SEROquel) 25 mg tablet 09/22/2022 Active sertraline (ZOLOFT) 50 mg tablet 09/22/2022 Active sodium, potassium & mag sulfates (SUPREP BOWEL KIT) 17.5-3.13-1.6 gram recon soln 10/04/2022 Active cholecalciferol (VITAMIN D-3) 2000 unit tablet Active Active Problems No known active problems Surgical History Surgery Date Site/Laterality Comments HYSTERECTOMY 10/01/2011 - 09/30/2012 FOOT SURGERY 10/01/2009 - 09/30/2010 Bilateral Nerve/foot surgery SECTION 10/01/1997 - 09/30/1998 Medical History Medical History Date Comments Depression Fibromyalgia Anxiety Family History Medical History Relation Name Comments Cancer Other Diabetes Other Heart attack Other Heart disease Other Hypertension Other Stroke Other Relation Name Status Comments Other Social History Tobacco Use Types Packs/Day Years Used Date Smoking Tobacco: Former Cigarettes Q uit: 2021 Smokeless Tobacco: Never Tobacco Cessation:Counseling Given: No AUDIT-C Answer Date Recorded Q1: How often do you have a drink containing alc ohol? Never 11/17/2022 Average Number of Drinks Not on file 023 Q3: How often do you have si x or more drinks on one occasion? Never 11/17/2022 Personal Safety Answer Date Recorded Getting School Help Needed Not on file 12/07 Comments Unknown Sex and Gender Information Value Date Recorded Sex Assigned at Not on file Legal Sex Female 6:14 PM NEUROLOGIST Gender Identity Not on file Sexual Orientation Not on file Obstetrics History Last Filed Vital Signs Vital Sign Reading Time Taken Comments Blood Pressure 135/78 11/17/2022 11:23 AM NEUROLOGIST Pulse 71 11/17/2022 11:23 AM NEUROLOGIST Temperature - - Respiratory Rate - - Oxygen Saturation - - Inhaled Oxygen Concentration - - Weight 89.4 kg (197 lb) 11/17/2022 11:23 AM NEUROLOGIST Height 170.2 cm (5' 7) 11/17/2022 11:23 AM NEUROLOGIST Body Mass Index 30.85 11/17/2022 11:23 AM NEUROLOGIST Plan of Treatment Health Maintenance Due Date Last Done Comments Breast Cancer Screening-Mammogram 1967 Colon Cancer Screening-Colonoscopy 1967 Depression Screening 1967 Hepatitis C Screening 1967 DTaP/Tdap/Td Vaccine (1 - Tdap) 1978 Hepatitis B Screening 1985 Regular Well Visit/Exam 18-64 1985 Zoster Vaccine (1 of 2) 2017 Covid-19 Vaccine (3 - 2024-2 6 season) 2025 03/07/2021, 02/14/2021 Influenza Vaccine (#1) 2025 Pneumococcal vaccine <65 Aged Out No longer eligible based on patient's age to complete this topic Insurance [facility] [place] [id number] Care Teams Leak Inspector Relationship Specialty Start Date End Date Parvin Amos DO PCP - General Family Medicine 11/09/22
[2025-06-22 13:31] VITALS: BP 121/78; PULSE 74; RESP 16; TEMP 37.1; O2SAT 99
[2025-06-22 14:45] VITALS: PULSE 74; RESP 20; TEMP 37.1; O2SAT 99
--- OUTSIDE RECORDS SUMMARY | 2025-06-22 16:00 | XMS_ITS | Clinical Summary ---
Author Organization [facility] Address [facility] [place] [address] Care Team Providers Care Hammer Operator Name Role Phone Parvin Amos DO Primary Care Provider +1- [phone] Allergies Active Allergy Reactions Criticality Noted Date [...] on file Legal Sex Female 6:14 PM PRODUCTION SUPPORT ANALYST Gender Identity Not on file Sexual Orientation Not on file Obstetrics History Last Filed Vital Signs Vital Sign Reading Time Taken Comments Blood Pressure 135/78 11/17/2022 11:23 AM PRODUCTION SUPPORT ANALYST Pulse 71 11/17/2022 11:23 AM PRODUCTION SUPPORT ANALYST Temperature - - Respiratory Rate - - Oxygen Saturation - - Inhaled Oxygen Concentration - - Weight 89.4 kg (197 lb) 11/17/2022 11:23 AM PRODUCTION SUPPORT ANALYST Height 170.2 cm (5' 7) 11/17/2022 11:23 AM PRODUCTION SUPPORT ANALYST Body Mass Index 30.85 11/17/2022 11:23 AM PRODUCTION SUPPORT ANALYST Plan of Treatment Health Maintenance Due Date [...] patient's age to complete this topic Insurance [facility] Address: [facility] [address] [place] [address] [facility] Address: [facility] [address] [place] [id number] Care Teams Hammer Operator Relationship Specialty Start Date End Date Parvin Amos DO PCP - General Family Medicine 11/09/22
[2025-06-22 16:44] VITALS: BP 140/53; PULSE 66; RESP 16; O2SAT 100
[2025-06-22] MEDS: KETOROLAC 30 MG/ML VIAL (*BKC) IV PUSH (16:46)
[2025-06-22] MEDS: SODIUM CHLORIDE 0.9% IV 1,000 ML 999 ML IV CONT (16:46)
[2025-06-22 16:47] LABS: Hematocrit 36.8 % (37.0-47.0); Hemoglobin 12.1 g/dL (12.0-15.0); Immature Granulocyte Percent A 0.2 % (0-0.5); Lymphocytes Absolute Auto 1.67 K/mm3 (0.9-3.2); Mean Corpuscular HGB Conc 32.9 g/dl (32-36); Mean Corpuscular Hemoglobin 32.1 pg (26-34); Mean Corpuscular Volume 97.6 fl (80-100); Nucleated Red Blood Cells Absolute Auto 0.000 K/mm3 (0.0-0.012); Nucleated Red Blood Cells Perc 0.0 % (0.0-0.2); Platelet Count Result 187 k/mm3 (150-375); Red Blood Count 3.77 M/mm3 (4.2-5.4); White Blood Count 4.7 K/mm3 (4.5-10.0)
[2025-06-22] MEDS: diazePAM INJ (*CRX) 10 MG/2 ML SYRINGE 5 MG IV PUSH (16:47)
[2025-06-22 16:58] LABS: Alanine Aminotransferase 21 U/L (6-35); Albumin Level 3.9 g/dL (3.5-5.1); Alkaline Phosphatase 79 U/L (38-126); Anion Gap 4 mmol/L (4-12); Aspartate Amino Transferase 28 U/L (14-36); Bilirubin,Total 0.3 mg/dL (0.2-1.3); Blood Urea Nitrogen 15 mg/dL (7-17); Calcium 8.8 mg/dL (8.4-10.2); Carbon Dioxide 29 mmol/L (22-30); Chloride 105 mmol/L (98-107); Estimated CRCL calculation 70 ml/min; Estimated Glomerular Filt Rate > 60; Glucose 83 mg/dL (65-110); Potassium 3.7 mmol/L (3.4-5.0); Sodium 138 mmol/L (137-145); Total Protein 6.4 g/dL (6.3-8.2)
--- NOTE | 2025-06-22 17:08 | PC.NURSE ---
Pt to x-ray at this time.
[2025-06-22 17:39] VITALS: PULSE 71; RESP 14; O2SAT 100
--- NOTE | 2025-06-22 17:49 | ED.BACK ---
HPI - Back Pain/Injury General Chief Complaint: Back Pain/Injury Stated Complaint: Diff walking/back pain Time Seen by Provider: 06/22/25 15:53 History of Present Illness HPI Narrative: Patient is a 60-year-old female who presents ER with low back pain. Sudden onset after bending over to pick something up. Radiates down left leg. Has had this in the past. Has chronic spinal issues. No saddle anesthesia. No difficulty with urination defecation. Has not taking pain medication. Pain is worse with lying down and worse with moving. Related Data Home Medications ?Medication ?Instructions ?Recorded ?Confirmed ?Last Taken ?Type duloxetine 60 mg capsule,delayed 60 mg PO DAILY 11/08/20 05/08/25 Unknown History release multivitamin 1 tablet PO DAILY 08/09/23 05/08/25 Unknown History fluticasone propionate 50 1 spray intranasal DAILY 05/05/24 05/08/25 Unknown History mcg/actuation nasal spray,suspension (Flonase Allergy Relief) lamotrigine 100 mg tablet 100 mg PO DAILY 05/05/24 05/08/25 Unknown History folic acid 1 mg tablet PO 03/10/25 05/08/25 Unknown History hydroxychloroquine 200 mg tablet mg PO 03/10/25 05/08/25 Unknown History mecobalamin (vitamin B12) 1,000 1,000 mcg PO DAILY 03/10/25 05/08/25 Unknown History mcg lozenges methotrexate sodium 2.5 mg tablet mg PO 03/10/25 05/08/25 Unknown History quetiapine 25 mg tablet mg PO PRN 03/10/25 05/08/25 Unknown History tizanidine 2 mg tablet mg PO 03/10/25 05/08/25 Unknown History Allergies Allergy/AdvReac Type Severity Reaction Status Date / Time latex Allergy Intermediate Hives Verified 06/22/25 12:48 [id number]-tryptophan Allergy Unknown nausea, Verified 06/22/25 12:48 (oxitriptan) blurred vision gabapentin Allergy Unknown Other Verified 06/22/25 12:48 Penicillins Allergy Unknown Skin Verified 06/22/25 12:48 Reaction sumatriptan Allergy Unknown throat Verified 06/22/25 12:48 tight, lightheaded Review of Systems Review of Systems: All systems reviewed & are unremarkable except as noted in HPI and below Constitutional: Constitutional: Reports no additional constitutional complaints Cardiovascular: Cardiovascular: Reports no additional cardiovascular complaints Respiratory: Respiratory: Reports no additional respiratory complaints Musculoskeletal: Musculoskeletal: Reports no additional musculoskeletal complaints Neurologic: Reports system reviewed and no additional complaints, except as documented PMFSH Past Medical History Medical History Chronic shoulder pain Chronic knee pain Chronic back pain Arthritis Anxiety Allergies Migraine, unspecified, not intractable, without status migrainosus Rodriguez's neuroma of right foot Endometriosis Fibromyalgia Herpes zoster Surgical History Surgical History H/O section 1997 H/O tubal ligation H/O: hysterectomy 2014 Family History Family History Father Diabetes mellitus Family history of glaucoma Family history of cardiovascular disease Cerebrovascular accident Malignant neoplasm of prostate Cancer Mother Family history of cardiovascular disease Cancer Hypertension Depression Anxiety Cerebrovascular accident Sibling Alcoholism Other Thyroid disorder Grandparent Alcoholism Cancer Family history of cardiovascular disease Grandparent Alcoholism Other Heart disease Social History Social History Social History: pt has had flu and tetanus vaccine - 2021 had cholesterol and colonoscopy - 2021 never had a blood transfusion is currently sexually active, no contraceptive as she has had a hysterectomy in 2014. Smoking packs per day: 0.5 Smoking cigarettes per day: 10.0 Years smoked: 42 Smoking pack-years: 21.00 Smoking status: Former smoker Tobacco type: cigarettes Second hand tobacco smoke exposure: Yes Smoking end date: 07/01/22 Alcohol intake: never Alcohol use details: Only twice per year if that. Substance use: former Substance use type: former substance user and marijuana Other substance usage details: gummies Last use: no longer using gummies Do You Feel Safe in your Home?: Yes Lack of Transportation: No Lack of Food: Never True Current Housing: I Have Housing Concerned About Future Housing: No Difficulty Paying Gas/Electric Bills: No Difficulty Paying for Meds: No Currently Unemployed: No Education: High School Diploma/GED Difficulty w/ Childcare or Family Care: No Living arrangements: with family Additional living arrangements comments: Occupation/Education: occupation Additional occupation/education comments: [email or web address] Gender identity (if verbalized by the patient): Female Sexual Orientation (if Verbalized by the Patient): Straight or Heterosexual Spiritual care concerns: No Agree to blood products: Yes Exam Narrative: GENERAL: Well-appearing, well-nourished, and in no acute distress. HEAD: Normocephalic, atraumatic. ENT: Mucous membranes moist. CHEST: Clear to auscultation. No respiratory distress. HEART: Regular rate and rhythm. Normal peripheral pulses. Back: No midline tenderness the T/L-spine. Significant left SI region tenderness reproducing patient's discomfort. SKIN: Warm, dry, no rash. NEURO: Alert and oriented x3. Course Course Emergency Course: Patient received IV Toradol and Valium as well as IV fluid. CBC and CMP unremarkable. X-rays without acute process. Appropriate for discharge home. Will treat with Medrol Dosepak and muscle relaxers. Will give spine referral. Vital Signs Vital signs: Vital Signs Temperature 98.8 F 06/22/25 13:31 Pulse Rate 74 06/22/25 13:31 Respiratory Rate 16 06/22/25 13:31 Blood Pressure 121/78 06/22/25 13:31 Pulse Oximetry 99 06/22/25 13:31 Oxygen Delivery Room Air 06/22/25 13:31 Temperature 98.8 F 06/22/25 14:45 Pulse Rate 71 06/22/25 17:39 Respiratory Rate 14 06/22/25 17:39 Blood Pressure 140/53 L 06/22/25 16:44 Pulse Oximetry 100 06/22/25 17:39 Oxygen Delivery Room Air 06/22/25 14:45 MDM - Back Pain/Injury Lab Data 06/22/25 16:42 06/22/25 16:42 Labs: Lab Results 06/22/25 Range/Units 16:42 WBC 4.7 (4.5-10.0) K/mm3 RBC 3.77 L (4.2-5.4) M/mm3 Hgb 12.1 (12.0-15.0) g/dL Hct 36.8 L (37.0-47.0) % MCV 97.6 (80-100) fl MCH 32.1 (26-34) pg MCHC 32.9 (32-36) g/dl RDW 13.0 (11.5-14.5) % Plt Count 187 (150-375) k/mm3 MPV 11.6 H (7.4-10.4) fl Immature Gran % (Auto) 0.2 (0-0.5) % Neut % (Auto) 54.0 (45.5-73.1) % Lymph % (Auto) 35.4 (18.3-44.2) % Broome % (Auto) 8.3 (2.6-8.5) % Eos % (Auto) 1.3 (0-4.4) % Baso % (Auto) 0.8 (0.2-1.2) % Lymph # (Auto) 1.67 (0.9-3.2) K/mm3 Broome # (Auto) 0.4 (0.1-0.6) K/mm3 Eos # (Auto) 0.1 (0-0.3) K/mm3 Baso # (Auto) 0.0 (0.0-0.1) K/mm3 Abs Immat Gran (auto) 0.01 (0.00-0.031) K/mm3 Absolute Neuts (auto) 2.6 (1.3-6.7) K/mm3 Absolute Nucleated RBC 0.000 (0.0-0.012) K/mm3 Nucleated RBC % 0.0 (0.0-0.2) % Sodium 138 (137-145) mmol/L Potassium 3.7 (3.4-5.0) mmol/L Chloride 105 (98-107) mmol/L Carbon Dioxide 29 (22-30) mmol/L Anion Gap 4 (4-12) mmol/L BUN 15 (7-17) mg/dL Creatinine 0.74 (0.7-1.0) mg/dL Estim Creat Clear Calc 70 ml/min Estimated GFR > 60 (59 - ) Glucose 83 (65-110) mg/dL Calcium 8.8 (8.4-10.2) mg/dL Total Bilirubin 0.3 (0.2-1.3) mg/dL AST 28 (14-36) U/L ALT 21 (6-35) U/L Alkaline Phosphatase 79 (38-126) U/L Total Protein 6.4 (6.3-8.2) g/dL Albumin 3.9 (3.5-5.1) g/dL Imaging Data Radiologist's impression: ITS Impressions Lumbar Spine X-Ray 06/22/25 17:29 IMPRESSION: 1. No compression fracture in the lumbar spine. 2. Reversal of the normal lumbar lordosis. 3. Mild degenerative change in the lumbar spine. If symptoms persist or worsen, consider an MRI of the lumbar spine for further assessment. SI Joint X-Ray 06/22/25 17:31 IMPRESSION: 1. Mild degenerative change in the sacroiliac joints. If symptoms persist or worsen, consider a short-term follow-up study or MRI imaging for further assessment. Discharge Plan Discharge Clinical Impression: Sciatica Patient Disposition: Home Condition: Stable Instructions: Sciatica (ED) Additional Instructions: Please return to the emergency department if you develop severe pain that is not controlled by pain medications or if you are unable to walk because of pain or weakness. Return to the emergency department immediately if you develop fevers, loss of bowel or bladder control (dribbling of urine or having accidents you wouldn't normally have), inability to urinate, numbness of your genital or anal area, or weakness/numbness of your legs or arms as these could all be signs of a serious medical emergency. Patient Language: Yi Prescriptions: New methylprednisolone [Medrol (Cyrus)] 4 mg tablets,dose pack See Rx Instructions .ROUTE .COMPLEX Qty: 21 0RF Rx Instructions: orally per package directions cyclobenzaprine 10 mg tablet 10 mg PO TID PRN (Reason: muscle spasm) Qty: 20 0RF No Action lamotrigine 100 mg tablet 100 mg PO DAILY fluticasone propionate [Flonase Allergy Relief] 50 mcg/actuation spray,suspension 1 spray intranasal DAILY Rx Instructions: administer into each nostril duloxetine 60 mg capsule,delayed release(DR/EC) 60 mg PO DAILY cholecalciferol (vitamin D3) 50 mcg (2,000 unit) tablet 50 mcg PO DAILY Qty: 90 1RF multivitamin Tablet 1 tablet PO DAILY mecobalamin (vitamin B12) 1,000 mcg lozenge 1,000 mcg PO DAILY Rx Instructions: allow to dissolve in mouth OR may chew lightly before swallowing methotrexate sodium 2.5 mg tablet PO hydroxychloroquine 200 mg tablet PO folic acid 1 mg tablet PO tizanidine 2 mg tablet PO quetiapine 25 mg tablet PO PRN Rx Instructions: take 1/2 tablet PRN at bedtime cyclobenzaprine 10 mg tablet See Rx Instructions .ROUTE .COMPLEX Qty: 90 0RF Dose Instruction: TAKE 1 TABLET BY MOUTH THREE TIMES A DAY NEEDED FOR MUSCLE SPASM Rx Instructions: TAKE 1 TABLET BY MOUTH THREE TIMES A DAY NEEDED FOR MUSCLE SPASM furosemide 40 mg tablet See Rx Instructions .ROUTE .COMPLEX Qty: 90 1RF Dose Instruction: TAKE 1 TABLET EVERY MORNING Rx Instructions: TAKE 1 TABLET EVERY MORNING atorvastatin 10 mg tablet See Rx Instructions .ROUTE .COMPLEX Qty: 90 1RF Dose Instruction: TAKE 1 TABLET DAILY AT BEDTIME Rx Instructions: TAKE 1 TABLET DAILY AT BEDTIME meloxicam 15 mg tablet See Rx Instructions .ROUTE .COMPLEX Qty: 90 1RF Dose Instruction: TAKE 1 TABLET DAILY Rx Instructions: TAKE 1 TABLET DAILY pregabalin 75 mg capsule 75 mg PO DAILY Qty: 90 1RF Follow-up/Referrals: Russel Hanley MD [Physician, Neurosurgery] - 1 Week Parvin Amos DO [Primary Care Provider, Family Practice] - 1 Week
[2025-06-22 18:26] VITALS: BP 138/50; PULSE 70; RESP 15; O2SAT 100
== END 2025-06-22 18:27 | disposition home or self-care (01) ==
PROVIDERS: Emergency Provider Emergency Medicine; PCP Family Medicine
DX: M54.42 Lumbago with sciatica, left side (principal); M19.90 Unspecified osteoarthritis, unspecified site; M79.7 Fibromyalgia; F41.9 Anxiety disorder, unspecified; Z87.891 Personal history of nicotine dependence; Z90.710 Acquired absence of both cervix and uterus
CPT/HCPCS: 36415; 72100; 72202; 80053; 85025; 96361; 96374; 96375; 99284; J1885; J3360; J7030

== ENCOUNTER 2025-06-27 10:12 | Emergency (ER) | payer BC, SELFPAY ==
--- OUTSIDE RECORDS SUMMARY | 2024-11-21 04:38 | XMS_ITS | Continuity of Care Document ---
Author Organization [facility] Address [address] [place] [address] Phone Care Team Providers Care Sales Representative [employer] Name Role Phone Rachel Belle NP Unavailable Unavailabl e Allergies, Adverse Reactions, Alerts Substance Reaction Status Criticality No Known Allergies Active No Inform ation Medications Medication Instructions Dosage Effective Dates (start - stop) Status Comments Vitamin D3 10 mcg (400 unit) tablet Takes OTC as directed - Active cyclobenzaprine 5 mg tablet take 1 tablet by oral route every 8 hours as needed - Active meloxicam 15 mg tablet take 1 tablet by oral route every day 15 MG - Active Claritin 10mg tablet As Needed - Activ e Fish Oil 1,000 mg (120mg-180 mg) capsule Take one capsule by mouth daily - Active Multi For Her 18 mg [id number] mcg tablet Take one tablet by mouth daily - Active calcium carb-mag ox-zinc sulf 334-134-5mg tablet Take one tablet by mouth daily - Active PROBIOTIC (unknown strength) Use as Directed Not Available - Active Procedures Procedure Date Moderate level of MDM Low level of MDM Moderate level of MDM Moderate level of MDM Low level of MDM Low level of MDM Comprehensive, moderate complexity Office Visit New Office Visit Established Office Visit New Advance Directives Directive Yes / No Effective Date File Name No Information Encounters Encounter Description Practice Location Reason(s) For Visit Diagnoses Date Provider Providers Copied on Encounter [facility], [address] [place] [address], [address], [place] tel: [phone] [facility] No Information 5 Barbra Ramos. [address] [place], [address], [place]. tel: [phone] Moderate level of MDM [facility], [address] [place] [address], [address], [place] tel: [phone] [facility] Dorsalgia, unspecifiedPleurodyni a 3 Link Rosie. [address] [place], [address]. tel: [phone] Low level of MDM [facility], [address] [place] [address], [address], [place] tel: [phone] [facility] Dorsalgia, unspecifiedUnspecifie d abdominal pain 3 Barbra Ramos. [address] [place], [address], [place]. tel: [phone] Moderate level of MDM [facility], [address] [place] [address], [address], [place] tel: [phone] [facility] Dorsalgia, unspecified 3 Barbra Ramos. [address] [place], [address], [place]. tel: [phone] Moderate level of MDM [facility], [address] [place] [address], [address], [place] tel: [phone] [facility] Pleurodynia 3 Link Velez. [address] [place], [address]. tel: [phone] Low level of MDM [facility], [address] [place] [address], [address], [place] tel: [phone] [facility] Acute vaginitisCystocele, midline 2 Irvin Cason. [address] [place] [address], [address], [place]. tel: [phone] Low level of MDM [facility], [address] [place] [address], [address], [place] tel: [phone] [facility] Nasal polyp, unspecifiedAllergic rhinitis, unspecifiedAnosmia 1 Barbra Ramos. [address], [facility], [place]. tel: [phone] [facility], [address] [place] [address], [facility], [place] tel: [phone] [facility] No Information 1 Barbra Ramos. [address], [facility], [place]. tel: [phone] [facility], [address] [place] [address], [facility], [place] tel: [phone] [facility] No Information 1 Barbra Ramos. [address], [facility], [place]. tel: [phone] Comprehensiv e, moderate complexity [facility], [address] [place] [address], [facility], [place] tel: [phone] [facility] Hyperlipidemia, unspecifiedFatty (change of) liver, not elsewhere classifiedOther fatigueMenopausal and female climacteric statesObesity, unspecified 9 Barbra Ramos. [address], [facility], [place]. tel: [phone] Office Visit [facility], [address] [place] [address], [facility], [place] tel: [phone] [facility] Overactive bladderFrequency of micturition 8 Mati Frank. [address] [place] [address], [address]. tel: [phone] Referring Provider: Jessika Reynoso, [address] [place] [address], [id number]. tel:[phone] Office Visit Established [facility], [address] [place] [address], [facility], tel: [phone] [facility] Acute vaginitis 8 Edgardo Rosen. [address] [place] [address], [id number] . tel: [phone] Office Visit [facility], [address] [place] [address], [facility], tel: [phone] [facility] Acute vaginitis Edgardo Mottath. [address] [place] [address], [id number] . tel: [phone] Family History Family Member Type Diagnosis Age At Onset No Information Immunizations Vaccine Date Status Comments COVID-19, mRNA, LNP-S, PF, 100 mcg/0.5 mL dose administered Note: Moderna COVID- 19 Vaccine ; Source: Source Unspecified COVID-19, mRNA, LNP-S, PF, 100 mcg/0.5 mL dose administered Note: Moderna COVID- 19 Vaccine ; Source: Source Unspecified Payers Payer name Insurance type Covered alliance party ID Jamil harris(s) BC/BS B [id number] Social History Type Description Quantity Date Captured Comments Sex Female Smoking Status No Information Chief Complaint And Reason For Visit No Information History Of Present Illness Encounter Date Complaint History Of Prese nt Illness No Information Instructions Date Instruction Additional Infor mation No Information Assessments Type Assessment Date No Information
--- NOTE | ~2025-06-27 | CT_ITS ---
[facility] EXAMINATION: CT abdomen pelvis w con COMPARISON: None HISTORY: lower back pain, abdominal pain TECHNIQUE: Axial images were obtained through the abdomen, pelvis post administration of IV contrast. Oral contrast was also administered. Coronal reconstruction images were obtained from the axial views. CT scan performed using dose optimization techniques including the following automated exposure control; adjustment of mA and/or kV; use of iterative reconstruction technique. Automatic exposure control was used to reduce radiation dose. Permanent radiation dose record is archived to PACS. FINDINGS: CT abdomen: LUNG BASES: The lung bases are clear. The visualized portions of the heart and pericardium are unremarkable. LIVER: Mild hepatic steatosis. Subcentimeter probable liver cysts. Portal vein patent. No intrahepatic biliary duct dilatation. SPLEEN: Unremarkable. KIDNEYS: Right Kidney: Unremarkable. No calculi. No hydronephrosis. Left Kidney: Left kidney midpole simple cyst 1 x 1 cm. ADRENAL GLANDS: Right adrenal nodule 1 x 1 cm, outpatient renal MRI is suggested. PANCREAS: Unremarkable. GALLBLADDER/BILIARY: Unremarkable. No biliary dilatation. STOMACH AND ESOPHAGUS: Visualized stomach and esophagus within normal limits. BOWEL/MESENTERY: Moderate fecal content, no colitis or diverticulitis. Appendix normal. Mesentery normal. Small bowel normal. ADENOPATHY/RETROPERITONEUM: No lymphadenopathy. AORTA/VASCULATURE: Normal caliber aorta. FREE FLUID OR FREE AIR: No free fluid.. CT pelvis: SOLID ORGANS/REPRODUCTIVE: Post hysterectomy. BLADDER: Mild circumferential thickening of the bladder wall. OSSEOUS STRUCTURES: No acute osseous abnormality.No suspicious lesions. OVERLYING SOFT TISSUES: Unremarkable. IMPRESSION: Mild cystitis. Reviewed, dictated and finalized at location P. IMPRESSION: Mild cystitis.
--- NOTE | ~2025-06-27 | CT_ITS ---
EXAMINATION: CT lumbar spine wo con COMPARISON: None HISTORY: low back pain TECHNIQUE: Axial images were obtained through the spine without IV contrast. Coronal, sagittal reconstruction images were obtained from the axial views. CT scan performed using dose optimization techniques including the following automated exposure control; adjustment of mA and/or kV; use of iterative reconstruction technique. Automatic exposure control was used to reduce radiation dose. Permanent radiation dose record is archived to PACS. FINDINGS: No fracture or subluxation, the vertebral heights are intact. There is severe loss of disc height at L2-3 with moderate canal and foraminal stenosis. Soft tissues unremarkable. Impression: No acute abnormality. Reviewed, dictated and finalized at location P. Impression: No acute abnormality.
[2025-06-27 10:16] VITALS: BP 142/66; PULSE 75; RESP 16; TEMP 36.4; O2SAT 100
[2025-06-27 12:48] VITALS: BP 124/65; PULSE 73; RESP 18; TEMP 36.2; O2SAT 100
--- OUTSIDE RECORDS SUMMARY | 2025-06-27 12:59 | XMS_ITS | Clinical Summary ---
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 Gender Identity Not on file Sexual Orientation Not on file Obstetrics History Last Filed Vital Signs Vital Sign Reading Time Taken Comments Blood Pressure 135/78 11/17/2022 11:23 AM ROOF BOLTER Pulse 71 11/17/2022 11:23 AM ROOF BOLTER Temperature - - Respiratory Rate - - Oxygen Saturation - - Inhaled Oxygen Concentration - - Weight 89.4 kg (197 lb) 11/17/2022 11:23 AM ROOF BOLTER Height 170.2 cm (5' 7) 11/17/2022 11:23 AM ROOF BOLTER Body Mass Index 30.85 11/17/2022 11:23 AM ROOF BOLTER Plan of Treatment Health Maintenance Due Date [...] patient's age to complete this topic Insurance [facility]PP[facility] Address: [facility] [address] [place] [address] [facility] Address: [facility] [address] [place] [phone] Care Teams Dry Folder Cloth Relationship Specialty Start Date End Date Parvin Amos DO PCP - General Family Medicine 11/09/22
--- NOTE | 2025-06-27 13:38 | ED.BACK ---
HPI - Back Pain/Injury General Chief Complaint: Back Pain/Injury Stated Complaint: BACK PAIN Time Seen by Provider: 06/27/25 12:48 Source: patient, RN notes reviewed and old records reviewed Mode of arrival: ambulatory Limitations: no limitations History of Present Illness HPI Narrative: This is a 60 year old female with history of chronic spine issues who presents for evaluation of lower back pain. She states 5 days ago she developed severe back pain after bending over. She reports low back pain that radiates to left buttock and thigh. She came to [facility] for evaluation. She had lumbar xray and had improved pain with treatment. She was discharged on muscle relaxers. She states she has been taking the muscle relaxers and her pain was improving. This morning she developed worsening pain when turning in bed. She denies urinary difficulty. She reports tingling to left leg. She is unable to stand due to pain. Related Data Home Medications ?Medication ?Instructions ?Recorded ?Confirmed ?Last Taken ?Type duloxetine 60 mg capsule,delayed 60 mg PO DAILY 11/08/20 06/27/25 06/27/25 History release multivitamin 1 tablet PO DAILY 08/09/23 06/27/25 06/27/25 History fluticasone propionate 50 1 spray intranasal DAILY 05/05/24 06/27/25 06/26/25 History mcg/actuation nasal spray,suspension (Flonase Allergy Relief) lamotrigine 100 mg tablet 100 mg PO DAILY 05/05/24 06/27/25 06/27/25 History folic acid 1 mg tablet PO 03/10/25 05/08/25 06/27/25 History hydroxychloroquine 200 mg tablet mg PO 03/10/25 05/08/25 06/27/25 History mecobalamin (vitamin B12) 1,000 1,000 mcg PO DAILY 03/10/25 06/27/25 06/27/25 History mcg lozenges methotrexate sodium 2.5 mg tablet mg PO 03/10/25 05/08/25 06/27/25 History quetiapine 25 mg tablet 25 mg PO HS PRN sleep 03/10/25 06/27/25 Unknown History tizanidine 2 mg tablet mg PO 03/10/25 05/08/25 06/27/25 History Allergies Allergy/AdvReac Type Severity Reaction Status Date / Time latex Allergy Intermediate Hives Verified 06/27/25 12:36 [id number] Allergy Unknown nausea, Verified 06/27/25 12:36 (oxitriptan) blurred vision gabapentin Allergy Unknown Other Verified 06/27/25 12:36 Penicillins Allergy Unknown Skin Verified 06/27/25 12:36 Reaction sumatriptan Allergy Unknown throat Verified 06/27/25 12:36 tight, lightheaded PMFSH Past Medical History Medical History Chronic shoulder pain Chronic knee pain Chronic back pain Arthritis Anxiety Allergies Migraine, unspecified, not intractable, without status migrainosus Rodriguez's neuroma of right foot Endometriosis Fibromyalgia Herpes zoster Surgical History Surgical History H/O section 1997 H/O tubal ligation H/O: hysterectomy 2014 Family History Family History Father Diabetes mellitus Family history of glaucoma Family history of cardiovascular disease Cerebrovascular accident Malignant neoplasm of prostate Cancer Mother Family history of cardiovascular disease Cancer Hypertension Depression Anxiety Cerebrovascular accident Sibling Alcoholism Other Thyroid disorder Grandparent Alcoholism Cancer Family history of cardiovascular disease Grandparent Alcoholism Other Heart disease Social History Social History Social History: pt has had flu and tetanus vaccine - 2021 had cholesterol and colonoscopy - 2021 never had a blood transfusion is currently sexually active, no contraceptive as she has had a hysterectomy in 2014. Smoking packs per day: 0.5 Smoking cigarettes per day: 10.0 Years smoked: 42 Smoking pack-years: 21.00 Smoking status: Former smoker Tobacco type: cigarettes Second hand tobacco smoke exposure: Yes Smoking end date: 07/01/22 Alcohol intake: never Alcohol use details: Only twice per year if that. Substance use: former Substance use type: former substance user and marijuana Other substance usage details: gummies Last use: no longer using gummies Do You Feel Safe in your Home?: Yes Lack of Transportation: No Lack of Food: Never True Current Housing: I Have Housing Concerned About Future Housing: No Difficulty Paying Gas/Electric Bills: No Difficulty Paying for Meds: No Currently Unemployed: No Education: High School Diploma/GED Difficulty w/ Childcare or Family Care: No Living arrangements: with family Additional living arrangements comments: Occupation/Education: occupation Additional occupation/education comments: [employer] Gender identity (if verbalized by the patient): Female Sexual Orientation (if Verbalized by the Patient): Straight or Heterosexual Spiritual care concerns: No Agree to blood products: Yes Exam Const: General: no acute distress Nutritional Appearance: well nourished Orientation/consciousness: patient oriented x3 HENMT: Head: normal to inspection Eyes: EOM: EOMs intact bilaterally Neck: Neck: normal visual inspection Chest: Chest palpation & inspection: normal inspection of the chest Resp: Effort & Inspection: normal respiratory effort Auscultation: clear to auscultation bilaterally Neuro: General: patient oriented x3, moves all extremities and CN's II-XI intact bilaterally Psych: Mental Status: mental status grossly normal Affect: normal affect Attitude: cooperative Course Reevaluation(s) Reevaluation #1: I reviewed patient 's results with her. She reports her pain is much improved after she was given toradol 30 mg IV and Dilaudid 1 mg IV over 1 hour ago. SHe is now able to sit up on her own with significant pain. She is moving around in bed without distress. We discussed pain management with over the counter treatments. She will follo wup with PCP. She has also already been given follow up with spine at previous visit. She does not have saddle anesthesia, urinary retention or incontinence to suggest emergent need for MRI. She is stable for outpatient treatment. Date: 06/27/25 Time: 16:23 Vital Signs Vital signs: Vital Signs Temperature 97.5 F L 06/27/25 10:16 Pulse Rate 75 06/27/25 10:16 Respiratory Rate 16 06/27/25 10:16 Blood Pressure 142/66 H 06/27/25 10:16 Pulse Oximetry 100 06/27/25 10:16 Temperature 97.1 F L 06/27/25 12:48 Pulse Rate 72 06/27/25 14:32 Respiratory Rate 20 06/27/25 14:32 Blood Pressure 132/68 06/27/25 14:32 Pulse Oximetry 99 06/27/25 14:32 MDM - Back Pain/Injury MDM Narrative Medical decision making narrative: This patient in ER if worsening back pain and she also reports lower abdominal pain. I reviewed chart from visit 5 days ago in which she had lumbar xray. Given return visit I ordered CBC, CMP, UA and CT lumbar spine and CT Abdomen and pelvis to evaluated spine and GI etiology. CT did not shows any acute findings. UA negative. PAtient was given Toradol 30 mg IV and Dilaudid 1 mg IV for her pain. She had significant improvement. STable for outpatient follow up. Differential Diagnosis Differential diagnosis: Likely lumbar radiculopathy, sciatica, renal colic, pyelonephritis, AAA, discitis and other (diverticulitis, UTI) Medical Records Attestation: I reviewed the patient's medical records. Lab Data Attestation: I reviewed the patient's lab results. 06/27/25 13:58 06/27/25 13:58 Labs: Lab Results 06/27/25 06/27/25 Range/Units 13:58 15:10 WBC 7.4 (4.5-10.0) K/mm3 RBC 3.94 L (4.2-5.4) M/mm3 Hgb 12.7 (12.0-15.0) g/dL Hct 38.6 (37.0-47.0) % MCV 98.0 (80-100) fl MCH 32.2 (26-34) pg MCHC 32.9 (32-36) g/dl RDW 13.1 (11.5-14.5) % Plt Count 220 (150-375) k/mm3 MPV 11.6 H (7.4-10.4) fl Immature Gran % (Auto) 0.4 (0-0.5) % Neut % (Auto) 68.6 (45.5-73.1) % Lymph % (Auto) 24.9 (18.3-44.2) % [place] % (Auto) 4.9 (2.6-8.5) % Eos % (Auto) 0.5 (0-4.4) % Baso % (Auto) 0.7 (0.2-1.2) % Lymph # (Auto) 1.84 (0.9-3.2) K/mm3 [place] # (Auto) 0.4 (0.1-0.6) K/mm3 Eos # (Auto) 0.0 (0-0.3) K/mm3 Baso # (Auto) 0.1 (0.0-0.1) K/mm3 Abs Immat Gran (auto) 0.03 (0.00-0.031) K/mm3 Absolute Neuts (auto) 5.1 (1.3-6.7) K/mm3 Absolute Nucleated RBC 0.000 (0.0-0.012) K/mm3 Nucleated RBC % 0.0 (0.0-0.2) % Sodium 140 (137-145) mmol/L Potassium 3.9 (3.4-5.0) mmol/L Chloride 106 (98-107) mmol/L Carbon Dioxide 30 (22-30) mmol/L Anion Gap 4 (4-12) mmol/L BUN 20 H (7-17) mg/dL Creatinine 0.67 L (0.7-1.0) mg/dL Estim Creat Clear Calc 76 ml/min Estimated GFR > 60 (59 - ) Glucose 81 (65-110) mg/dL Calcium 9.1 (8.4-10.2) mg/dL Total Bilirubin 0.3 (0.2-1.3) mg/dL AST 43 H (14-36) U/L ALT 58 H (6-35) U/L Alkaline Phosphatase 72 (38-126) U/L Total Protein 7.2 (6.3-8.2) g/dL Albumin 4.5 (3.5-5.1) g/dL Urine Color Yellow (Yellow) Urine Appearance Clear (Clear) Urine pH 7.5 (5.0-9.0) Ur Specific [place] 1.007 (1.001-1.035) Urine Protein Negative (Negative) mg/dL Urine Glucose (UA) Negative (Negative) mg/dL Urine Ketones Negative (Negative) mg/dL Ur Blood (Man) Negative (Negative) Urine Nitrate Negative (Negative) Urine Bilirubin Negative (Negative) Urine Urobilinogen 0.2 (<2.0) mg/dL Leukocyte Esterase Rfl Negative (Negative) CHERIE/UL Imaging Data Radiologist's impression: ITS Impressions Lumbar Spine CT 06/27/25 15:39 Impression: No acute abnormality. Abdomen/Pelvis CT 06/27/25 15:40 IMPRESSION: Mild cystitis. Discharge Plan Discharge Clinical Impression: Intermittent lower abdominal pain Acute bilateral low back pain Qualifiers: Sciatica presence: with sciatica Sciatica laterality: sciatica of left side Qualified Code(s): M54.42 - Lumbago with sciatica, left side Patient Disposition: Home Condition: Improved Instructions: Antibiotic Form, Sciatica (ED), Acute Low Back Pain (ED), Lower Back Exercises (ED) Patient Language: Malay Prescriptions: New oxycodone-acetaminophen [Percocet] 5-325 mg tablet 1 tablet PO Q6H PRN (Reason: pain) Qty: 10 0RF No Action lamotrigine 100 mg tablet 100 mg PO DAILY fluticasone propionate [Flonase Allergy Relief] 50 mcg/actuation spray,suspension 1 spray intranasal DAILY Rx Instructions: administer into each nostril duloxetine 60 mg capsule,delayed release(DR/EC) 60 mg PO DAILY cholecalciferol (vitamin D3) 50 mcg (2,000 unit) tablet 50 mcg PO DAILY Qty: 90 1RF multivitamin Tablet 1 tablet PO DAILY mecobalamin (vitamin B12) 1,000 mcg lozenge 1,000 mcg PO DAILY Rx Instructions: allow to dissolve in mouth OR may chew lightly before swallowing methotrexate sodium 2.5 mg tablet PO hydroxychloroquine 200 mg tablet PO folic acid 1 mg tablet PO tizanidine 2 mg tablet PO quetiapine 25 mg tablet 25 mg PO HS PRN (Reason: sleep) Rx Instructions: take 1/2 tablet PRN at bedtime methylprednisolone [Medrol (Cyrus)] 4 mg tablets,dose pack See Rx Instructions .ROUTE .COMPLEX Qty: 21 0RF Rx Instructions: orally per package directions furosemide 40 mg tablet See Rx Instructions .ROUTE .COMPLEX Qty: 90 1RF Dose Instruction: TAKE 1 TABLET EVERY MORNING Rx Instructions: TAKE 1 TABLET EVERY MORNING atorvastatin 10 mg tablet See Rx Instructions .ROUTE .COMPLEX Qty: 90 1RF Dose Instruction: TAKE 1 TABLET DAILY AT BEDTIME Rx Instructions: TAKE 1 TABLET DAILY AT BEDTIME meloxicam 15 mg tablet See Rx Instructions .ROUTE .COMPLEX Qty: 90 1RF Dose Instruction: TAKE 1 TABLET DAILY Rx Instructions: TAKE 1 TABLET DAILY pregabalin 75 mg capsule 75 mg PO DAILY Qty: 90 1RF Follow-up/Referrals: Parvin Amos DO [Primary Care Provider, Family Practice]
[2025-06-27] MEDS: ONDANSETRON INJ 4 MG/2 ML VIAL IV PUSH (13:56)
[2025-06-27] MEDS: KETOROLAC 30 MG/ML VIAL (*BKC) IV PUSH (14:00)
[2025-06-27 14:19] LABS: Hematocrit 38.6 % (37.0-47.0); Hemoglobin 12.7 g/dL (12.0-15.0); Immature Granulocyte Percent A 0.4 % (0-0.5); Lymphocytes Absolute Auto 1.84 K/mm3 (0.9-3.2); Mean Corpuscular HGB Conc 32.9 g/dl (32-36); Mean Corpuscular Hemoglobin 32.2 pg (26-34); Mean Corpuscular Volume 98.0 fl (80-100); Nucleated Red Blood Cells Absolute Auto 0.000 K/mm3 (0.0-0.012); Nucleated Red Blood Cells Perc 0.0 % (0.0-0.2); Platelet Count Result 220 k/mm3 (150-375); Red Blood Count 3.94 M/mm3 (4.2-5.4); White Blood Count 7.4 K/mm3 (4.5-10.0)
[2025-06-27] MEDS: HYDROmorphone HCL INJ (*CRX) 1 MG/ML SYR IV PUSH (14:29)
[2025-06-27 14:32] VITALS: BP 132/68; PULSE 72; RESP 20; O2SAT 99
[2025-06-27 14:42] LABS: Alanine Aminotransferase 58 U/L (6-35); Albumin Level 4.5 g/dL (3.5-5.1); Alkaline Phosphatase 72 U/L (38-126); Anion Gap 4 mmol/L (4-12); Aspartate Amino Transferase 43 U/L (14-36); Bilirubin,Total 0.3 mg/dL (0.2-1.3); Blood Urea Nitrogen 20 mg/dL (7-17); Calcium 9.1 mg/dL (8.4-10.2); Carbon Dioxide 30 mmol/L (22-30); Chloride 106 mmol/L (98-107); Estimated CRCL calculation 76 ml/min; Estimated Glomerular Filt Rate > 60; Glucose 81 mg/dL (65-110); Potassium 3.9 mmol/L (3.4-5.0); Sodium 140 mmol/L (137-145); Total Protein 7.2 g/dL (6.3-8.2)
--- NOTE | 2025-06-27 15:22 | PC.NURSE ---
post void residual was 0 after urination.
[2025-06-27 15:30] LABS: Add Urine Microscopic? NO; Appearance Urine Clear (Clear); Glucose Urine UA Negative (Negative); Leukocyte Esterase Ur Negative LEU/UL (Negative); Nitrate Urine Negative (Negative); Specific Grav Ur 1.007 (1.001-1.035)
[2025-06-27 16:46] VITALS: BP 136/78; PULSE 78; RESP 16; TEMP 36.2; O2SAT 99
== END 2025-06-27 16:48 | disposition home or self-care (01) ==
PROVIDERS: Emergency Provider General Practice; PCP Family Medicine
DX: M54.42 Lumbago with sciatica, left side (principal); R10.30 Lower abdominal pain, unspecified; Z87.891 Personal history of nicotine dependence
CPT/HCPCS: 36415; 72131; 74177; 80053; 81003; 85025; 96374; 96375; 99284; J1171; J1885; J2405; Q9967

== ENCOUNTER 2025-07-27 14:46 | Outpatient (CLI) | payer BC, SELFPAY ==
--- OUTSIDE RECORDS SUMMARY | 2024-11-21 04:38 | XMS_ITS | Continuity of Care Document ---
Author Organization [facility] Address [address] [place] [address] Phone Care Team Providers Care Car Deliverer Name Role Phone Rachel Belle NP Unavailable Unavailabl e Allergies, Adverse Reactions, Alerts Substance Reaction Status Criticality No Known Allergies Active No Inform ation Medications Medication Instructions Dosage Effective Dates (start - stop) Status Comments cyclobenzaprine 5 mg tablet take 1 tablet by oral route every 8 hours as needed - Active Vitamin D3 10 mcg (400 unit) tablet Takes OTC as directed - Active meloxicam 15 mg tablet take 1 tablet by oral route every day 15 MG - Active Claritin 10mg tablet As Needed - Activ e calcium carb-mag ox-zinc sulf 334-134-5mg tablet Take one tablet by mouth daily - Active Multi For Her 18 mg [id number] mcg tablet Take one tablet by mouth daily - Active Fish Oil 1,000 mg (120mg-180 mg) capsule Take one capsule by mouth daily - Active PROBIOTIC (unknown [...] Diagnoses Date Provider Providers Copied on Encounter [facility], [address] [place] [address], [address], [place] tel: [phone] [facility] No Information 5 Barbra Ramos. [address] [place], [address], [place]. tel: [phone] Moderate level of MDM [facility], [address] [place] [address], [address], [place] tel: [phone] [facility] Dorsalgia, unspecifiedPleurodyni a 3 Link Rosie. [address] [place], [address]. tel: [phone] Low level of MDM [facility], [address] [place] [address], [address], [place] tel: [phone] [facility] Dorsalgia, unspecifiedUnspecifie d abdominal pain 3 Barbra Ramos. [address] [place], [address], [place]. tel: [phone] Moderate level of MDM [facility], [address] [place] [address], [address], [place] tel: [phone] [facility] Dorsalgia, unspecified 3 Barbra Ramos. [address] [place], [address], [place]. tel: [phone] Moderate level of MDM [facility], [address] [place] [address], [address], [place] tel: [phone] [facility] Pleurodynia 3 Link Velez. [address] [place], [address]. tel: [phone] Low level of MDM [facility], [address] [place] [address], [address], [place] tel: [phone] [facility] Acute vaginitisCystocele, midline 2 Irvin Cason. [address] [place] [address], [address], [place]. tel: [phone] Low level of MDM [facility], [address] [place] [address], [address], [place] tel: [phone] [facility] Nasal polyp, unspecifiedAllergic rhinitis, unspecifiedAnosmia 1 Barbra Ramos. [address], [facility], [place]. tel: [phone] [facility], [address] [place] [address], [facility], [place] tel: [phone] [facility] No Information 1 Barbra Ramos. [address], [facility], [place]. tel: [phone] [facility], [address] [place] [address], [facility], [place] tel: [phone] [facility] No Information 1 Barbra Ramos. [address] [place], [facility], [place]. tel: [phone] Comprehensiv e, moderate complexity [facility], [address] [place] [address], [facility], [place] tel: [phone] [facility] Hyperlipidemia, unspecifiedFatty (change of) liver, not elsewhere classifiedOther fatigueMenopausal and female climacteric statesObesity, unspecified 9 Barbra Ramos. [address], [facility], [place]. tel: [phone] Office Visit [facility], [address] [place] [address], [facility], [place] tel: [phone] [facility] Overactive bladderFrequency of micturition 8 Mati Frank. [address] [place] [address], [address]. tel: [phone] Referring Provider: Jessika Reynoso, [address] [place] [address], [id number]. tel:[phone] Office Visit Established [facility], [address] [place] [address], [facility], tel: [phone] [facility] Acute vaginitis 8 Edgardo Rosen. [address] [place] [address], [id number] . tel: [phone] Office Visit [facility], [address] [place] [address], [facility], tel: [phone] [facility] Acute vaginitis Edgardo Mottath. [address] [place] [address], [id number] . tel: [phone] Family History Family Member Type Diagnosis Age At Onset No Information Immunizations Vaccine Date Status Comments COVID-19, mRNA, LNP-S, PF, 100 mcg/0.5 mL dose administered Note: Moderna COVID- 19 Vaccine ; Source: Source Unspecified COVID-19, mRNA, LNP-S, PF, 100 mcg/0.5 mL dose administered Note: Moderna COVID- 19 Vaccine ; Source: Source Unspecified Payers Payer name Insurance type Covered libertarian ID Jamil harris(s) BC/BS B [id number] Social History Type Description Quantity Date Captured Comments Sex Female Smoking Status No Information Chief Complaint And Reason For Visit No Information History Of Present Illness Encounter Date Complaint History Of Prese nt Illness No Information Instructions Date Instruction Additional Infor mation No Information Assessments Type Assessment Date No Information
--- NOTE | ~2025-07-27 | MR_ITS ---
EXAMINATION: MR renal wo con DATE: 07/27/2025 15:36 INDICATION: Disorder of adrenal gland, unspecified. TECHNIQUE: Magnetic resonance imaging (MRI) of the abdomen was performed without intravenous contrast. COMPARISON: CT abdomen and pelvis 06/27/2025, 08/30/2013 FINDINGS: There are cysts in the liver measuring up to 5 mm. The gallbladder, spleen, pancreas, and left adrenal gland are normal. There is a 12 mm mass in right adrenal gland containing microscopic fat, consistent with an adenoma, stable from 08/30/2013. There are cysts in the kidneys measuring up to 12 mm on the left. There are no dilated loops of bowel. There are no pathologically enlarged lymph nodes. There is no free intraperitoneal fluid. IMPRESSION: 1. 12 mm right adrenal adenoma. Reviewed, dictated and finalized at location E.
--- OUTSIDE RECORDS SUMMARY | 2025-07-27 16:28 | XMS_ITS | Clinical Summary ---
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 Gender Identity Not on file Sexual Orientation Not on file Obstetrics History Last Filed Vital Signs Vital Sign Reading Time Taken Comments Blood Pressure 135/78 11/17/2022 11:23 AM UG DESIGNER Pulse 71 11/17/2022 11:23 AM UG DESIGNER Temperature - - Respiratory Rate - - Oxygen Saturation - - Inhaled Oxygen Concentration - - Weight 89.4 kg (197 lb) 11/17/2022 11:23 AM UG DESIGNER Height 170.2 cm (5' 7) 11/17/2022 11:23 AM UG DESIGNER Body Mass Index 30.85 11/17/2022 11:23 AM UG DESIGNER Plan of Treatment Health Maintenance Due Date [...] patient's age to complete this topic Insurance [facility]PPO Address: [facility] [address] [place] [address] [facility] PL[facility] H[facility]/PPO Address: [facility] [address] [id number] Care Teams Rn International Relationship Specialty Start Date End Date Parvin Amos DO PCP - General Family Medicine 11/09/22
== END 2025-07-27 14:47 | disposition home or self-care (01) ==
PROVIDERS: PCP Family Medicine; Visit Provider Family Medicine
DX: E27.9 Disorder of adrenal gland, unspecified (principal); D35.01 Benign neoplasm of right adrenal gland
CPT/HCPCS: 74181

== ENCOUNTER 2025-08-19 12:58 | Outpatient (CLI) | payer BC, SELFPAY ==
--- OUTSIDE RECORDS SUMMARY | 2025-08-19 18:53 | XMS_ITS | Clinical Summary ---
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 Gender Identity Not on file Sexual Orientation Not on file Last Filed Vital Signs Vital Sign Reading Time Taken Comments Blood Pressure 135/78 11/17/2022 11:23 AM LABORER MINE Pulse 71 11/17/2022 11:23 AM LABORER MINE Temperature - - Respiratory Rate - - Oxygen Saturation - - Inhaled Oxygen Concentration - - Weight 89.4 kg (197 lb) 11/17/2022 11:23 AM LABORER MINE Height 170.2 cm (5' 7) 11/17/2022 11:23 AM LABORER MINE Body Mass Index 30.85 11/17/2022 11:23 AM LABORER MINE Plan of Treatment Health Maintenance Due Date [...] patient's age to complete this topic Insurance [facility] PL[facility] Care Teams Farmworker Fruit Relationship Specialty Start Date End Date Parvin Amos DO PCP - General Family Medicine 11/09/22
== END 2025-08-19 12:59 | disposition home or self-care (01) ==
LOC: ANHAUDASC 13:00
PROVIDERS: PCP Family Medicine; Visit Provider Family Medicine
DX: E78.00 Pure hypercholesterolemia, unspecified (principal); M54.50 Low back pain, unspecified; H90.3 Sensorineural hearing loss, bilateral
CPT/HCPCS: 92557; 92567